=== PATIENT | female | born 1975 | race Caucasian/White ===

== ENCOUNTER → 2020-01-27 11:31 | Outpatient (BNVA) | payer OTHER, SELFPAY | PROVIDERS: Family Provider Family Medicine; PCP Family Medicine; Visit Provider Nurse Practitioner Family | DX: N20.9 Urinary calculus, unspecified (principal); N39.0 Urinary tract infection, site not specified; N20.0 Calculus of kidney | CPT/HCPCS: 80053; 81001; 87077; 87086; 87186 ==

== ENCOUNTER 2020-02-02 13:21 | Outpatient (CLI) | payer OTHER, SELFPAY ==
--- NOTE | 2020-02-02 13:26 | XR_ITS ---
WS: [id number] ABDOMEN 1 VIEW(S) HISTORY: Stone COMPARISON: 07/27/2019 Normal bowel gas pattern. No suspicious calcifications or masses. No bone abnormality. XR/XR KUB [id number] IMPRESSION: Normal abdomen. No ureteral or renal calcifications identified.
== END 2020-02-02 13:22 | disposition home or self-care (01) ==
LOC: RAD 13:24
PROVIDERS: Family Provider Family Medicine; PCP Family Medicine; Visit Provider Urology
DX: N20.0 Calculus of kidney (principal); N39.0 Urinary tract infection, site not specified
CPT/HCPCS: 74018; 81001; 85025

== ENCOUNTER → 2020-02-04 08:46 | Outpatient (BNVA) | payer OTHER, SELFPAY | PROVIDERS: Family Provider Family Medicine; PCP Family Medicine; Visit Provider Urology | DX: N39.0 Urinary tract infection, site not specified (principal) | CPT/HCPCS: 81001 ==

== ENCOUNTER 2020-02-04 09:37 | Inpatient (IN) | payer OTHER, SELFPAY ==
[2020-02-04] VITALS (8 sets, daily range): BP systolic 94–116; BP diastolic 59–70; PULSE 58–84; RESP 16–18; TEMP 36.6–36.9; O2SAT 95–97; BMI 29.2
--- NOTE | 2020-02-04 09:44 | W.ED.ABDPA2 ---
HPI - Abdominal Pain General: Chief Complaint: Urogenital-Female Stated Complaint: KIDNEY PAIN Time Seen by Provider: 02/04/20 09:38 Source: patient Mode of arrival: ambulatory Limitations: no limitations History of Present Illness: HPI narrative: 44-year-old female who has a long history of kidney stones and cystitis. Patient sent here to be admitted by Dr. Sotelo for continuing cystitis. Patient does have flank pain she rates a 5 out of 10. Denies any vomiting. She has had low-grade fevers. Denies any worsening improving factors. MD elicited complaint: flank pain Pertinent past history: kidney stones Onset (ago): day(s) Pain Consistency: constant Location: L flank and R flank Severity: moderate Quality: sharp Exacerbating factors: nothing Relieving factors: nothing Associated Symptoms: Reports nausea; Denies chills and fever(s) Review of Systems Const: Denies: fever, chills, body aches or change in appetite Eyes: Denies: blurry vision or eye discomfort ENMT: Denies: throat pain or dental pain Card: Denies: chest pain Resp: Denies: shortness of breath GI: Reports: abdominal pain and nausea : Reports: flank pain Musc: Denies: neck pain or back pain Skin/Breast: Denies: rash Neuro: Denies: headache Psych: Denies: depression Kanu/Lymph: Denies: easy bruising All/Imm: Denies: hives PFSH ED PFSH: Medical History Recurrent UTI Renal calculus S/P extracorporeal shock wave therapy Surgical History H/O knee surgery H/O: hysterectomy S/P cholecystectomy S/P tonsillectomy Family History Father , 80 Cancer liver Diabetes Mother No problems noted. Social History Smoking and tobacco status: current every day smoker Alcohol intake: current Alcohol intake frequency: holidays/special occasions only Marital status: Current occupational status: employed History of recent travel: No Physical Exam Const: COMMON NORMALS: no apparent distress, oriented x3 and healthy appearing HENMT: COMMON NORMALS: normocephalic and head/scalp atraumatic HEAD & SCALP: normocephalic and atraumatic Eye: COMMON NORMALS: PERRL and EOMs intact bilaterally PUPIL: Yes PERRL Neck/C-Spine: COMMON NORMALS: full ROM and supple Chest: COMMONS NORMALS: inspection of chest normal and palpation of chest normal Resp: COMMON NORMALS: normal respiratory effort, no retractions, no use of accessory muscles and clear to auscultation bilaterally AUSCULTATION: clear to auscultation bilaterally Cardio: COMMON NORMALS: regular rate, regular rhythm and no murmurs RATE: regular rate RHYTHM: regular rhythm GI: COMMON NORMALS: normal to inspection, nondistended, normoactive bowel sounds, soft to palpation, non-tender and no masses PALPATION: Yes soft Extremity: COMMON NORMALS: normal to inspection and full ROM Neuro: COMMON NORMALS: oriented x3, moves all extremities and no focal motor deficits Psych: COMMON NORMALS: mental status grossly normal, thought process normal and cooperative THOUGHT PROCESS: normal thought process Skin: COMMON NORMALS: no rashes or lesions noted and no wounds GENERAL SKIN EXAM: no rashes or lesions noted Course Vital Signs: Vital signs: Vital Signs Temperature 98.0 F 02/04/20 09:41 Pulse Rate 84 02/04/20 09:41 Respiratory Rate 16 02/04/20 09:41 Blood Pressure 116/70 02/04/20 09:41 Pulse Oximetry 95 02/04/20 09:41 MDM - Abdominal Pain MDM Narrative: Medical decision making narrative: Patient presents here with flank pain and likely cystitis. I spoke to Dr. Sotleo who is going to admit her directly from the ER and has placed in orders. Patient's been stable while here. Discharge Plan Discharge Patient Disposition: Admitted As Inpatient Clinical Impression: Bilateral flank pain Condition: Stable Referrals: Lazaro So MD [Primary Care Provider] - Coding Level of Care Code ED Backend Java Developer for Chg Fwd Exam Comprehensive
[2020-02-04] MEDS: ondansetron 2 mg/ML SDV 2 mL 4 MG IVP (10:16)
[2020-02-04] MEDS: HYDROmorphone 1 mg/mL INJ 1 mL 0.5 MG IVP (10:16)
[2020-02-04 10:41] LABS: Basophils # 0.1 10^3/uL (0.0-0.1); Basophils % 0.5 %; Eosinophils # 0.1 10^3/uL (0.0-0.8); Eosinophils % 0.8 %; Hematocrit 48.1 % (37.0-47.0); Hemoglobin 15.7 g/dL (11.5-15.3); Lymphocytes # 2.5 10^3/uL (0.8-4.8); Lymphocytes % 22.9 %; Mean Corpuscular HGB Conc 32.6 g/dL (30.0-36.0); Mean Corpuscular Hemoglobin 30.1 pg (28.0-34.0); Mean Corpuscular Volume 92.1 fL (81-99); Monocytes # 0.9 10^3/uL (0.2-0.9); Monocytes % 7.9 %; Neutrophils # 7.2 10^3/uL (1.8-7.7); Neutrophils % 67.4 %; Nucleated Red Blood Cells % 0 %; Platelet Count 397 10^3/cmm (130-400); Red Blood Count 5.22 10^6/uL (4.1-5.3); Red Cell Distribution Width 12.9 % (12.1-15.1); White Blood Count 10.7 10^3/uL (4.0-10.0)
[2020-02-04 10:53] LABS: Alanine Aminotransferase 17 U/L (0-33); Albumin Level 4.3 g/dL (3.5-5.2); Alkaline Phosphatase 70 IU/L (35-105); Anion Gap 15.1 (5-19); Aspartate Amino Transferase 17 U/L (0-32); Blood Urea Nitrogen 12 mg/dL (6-20); Calcium 9.5 mg/dL (8.5-10.5); Carbon Dioxide 22 mmol/L (22-29); Chloride 105 mmol/L (98-107); Globulin 2.5 g/dL (1.3-4.6); Glomerular Filtration Rate 109.6 mL/min (90-130); Glucose 107 mg/dL (65-115); Osmolality Calculated 283 mOsm/kg (285-295); Potassium 4.1 mmol/L (3.5-5.1); Sodium 138 mmol/L (136-145); Total Bilirubin 0.2 mg/dL (0.15-1.2); Total Protein 6.8 g/dL (6.6-8.7)
--- NOTE | 2020-02-04 14:32 | CT_ITS ---
WS: [id number] CT ABDOMEN AND PELVIS NONCONTRAST HISTORY: left abdominal pain, history of stones TECHNIQUE: Imaging performed through the abdomen and pelvis. Coronal and sagittal reformats are submi tted. All CT scans at [facility] use at least one of these dose optimization techniques: automated exposure control; mA and/or kV adjustment per patient size (includes targeted exams where d ose is matched to clinical indication); or iterative reconstruction. DLP: 1286.01 mGy.cm COMPARISON: 09/14/2018 Lower thorax: Lung bases are clear. No hiatal hernia. Liver: Mild hepatomegaly and hepatic steatosis. No bile duct dilatation. Gallbladder: Prior cholecystectomy. Pancreas: Normal. Spleen: Normal. Adrenal glands: Normal. Right kidney: Normal size kidney. Vague calcifications are present in the medullary portion of the ki dney consistent with medullary sponge kidney. RIGHT ureter is not dilated. Left kidney: Normal size kidney with the increased density in the medullary portion of the kidney fro m medullary sponge kidney. The ureter is not dilated. Mild atherosclerosis aorta. No aneurysm. No free fluid, intraperitoneal air or significant lymphadenopathy. GI tract: Normal appendix. Mild fecal retention. A few scattered diverticula in the sigmoid region. N o acute inflammation. Abdominal wall: Intact. Pelvis: Minimally distended urinary bladder. No free fluid. Prior hysterectomy. Small LEFT ovarian fo llicle, 2.0 cm. Osseous structures: Unremarkable. CT/CT kidney stone [id number] IMPRESSION: 1. Medullary sponge kidneys similar to the prior study. No renal obstruction o r hydronephrosis. 2. Prior hysterectomy and cholecystectomy. 3. Normal appendix.
--- NOTE | 2020-02-04 14:54 | P.HP_ITS ---
Providers/Chief Complaint Admitting Physician: Malik Sotelo MD Primary Care Provider: Lazaro So MD Chief Complaint: FLANK PAIN, CYSTITIS History of Present Illness Stacy Aguero is a 44 year old female well-known to me for history of MSK type renal stone changes as well as recurrent urinary tract infections with pyelonephritis but no clear evidence of sepsis. On 01/27/2020 she was seen in the clinic for about 1 month history of increasing foul-smelling urine and lower urinary tract symptoms. Being on a self treatment program with Bactrim DS she started treatment and took it for about 3 weeks with improvement in symptoms and she stopped it. Shortly thereafter she started increasing symptoms again and restarted the Bactrim noticed no improvement. Other symptoms included chills but no fever and also developing left-sided pain. Was changed on that same day to Levaquin but failed to improve. She was reevaluated in the office on 02/02/2020. Culture from 01/27/2020 showed Klebsiella sensitive to cefuroxime, Cipro, Levaquin, nitrofurantoin, tetracycline and Bactrim but resistant to ampicillin. Urinalysis on that day was fairly unremarkable. KUB showed no obvious ureteral stones but did show known bilateral punctate calcifications. She felt that her symptoms were worsening. Based on the above culture she was started on Rocephin and changed from Levaquin to cefuroxime with plans for follow-up today. Today she presented with no significant improvement. She started having some nausea and some dizziness. Did complain also of some left lower quadrant pain which I think was noted. No overt fever but just generalized feeling poorly despite antibiotic course as described above. No significant change in her baseline bowel habits. She does have some mild diarrhea but nothing that she considers out of the normal for her. Because of the failure of outpatient treatment I recommended admission to the hospital on observation status. We will consult primary care or hospitalist service for broader perspective review of her condition. Because of her history of recurrent stones and left-sided flank pain and lower quadrant pain on that side I have recommended a CT scan stone protocol. Review of Systems 2 Const: Reports: chills, fatigue and malaise; Denies: fever Eyes: Denies: change in vision or blurry vision ENMT: Denies: throat pain or painful swallowing Card: Denies: chest pain or palpitations Resp: Denies: shortness of breath, productive cough or non-productive cough GI: Reports: abdominal pain, nausea, vomiting and other (Mild chronic diarrhea without significant change from baseline) : Reports: flank pain and urinary urgency Musc: Denies: neck pain, back pain or joint swelling Skin/Breast: Denies: rash or skin tenderness Neuro: Reports: dizziness; Denies: weakness in extremities, difficulty walking, confusion or seizure-like activity Psych: Reports: anxiety (Related to illness); Denies: memory loss Kanu/Lymph: Denies: easy bruising or easy bleeding All/Imm: Denies: hives or throat swelling Medications/Allergies Home Medications Medication Instructions Recorded Confirmed Last Taken Type cefuroxime axetil 500 mg tablet 500 mg PO BID #28 tab 02/02/20 02/04/20 02/04/20 05:00 Rx ketorolac 10 mg tablet 10 mg PO Q6H 5 Days #20 tab 02/02/20 02/04/20 02/03/20 23:59 Rx sulfamethoxazole-trimethoprim 1 tab PO BID PRN 02/04/20 02/04/20 Unknown History Allergies Allergy/AdvReac Type Severity Reaction Status Date / Time gluten Allergy ALGY-Rash Verified 02/04/20 09:47 morphine Allergy N/V Verified 02/04/20 08:44 PFSH Acute PFSH: Medical History (Updated 02/04/20 @ 17:55 by Otis Rodas MD) Medullary sponge kidney Recurrent UTI Renal calculus S/P extracorporeal shock wave therapy Surgical History (Updated 02/04/20 @ 17:51 by Otis Rodas MD) H/O knee surgery H/O: hysterectomy History of tubal ligation S/P cholecystectomy S/P tonsillectomy Family History Father , 80 Cancer liver Diabetes Mother No problems noted. Social History (Updated 02/04/20 @ 17:51 by Otis Rodas MD) Smoking and tobacco status: current every day smoker Alcohol intake: current Alcohol intake frequency: holidays/special occasions only Substance/Drug Use: current Substance/Drug use frequency: Special occassions/opportunity only Substance/Drug use type: Marijuana Marital status: Current occupational status: employed History of recent travel: No Vitals/I&O/Wt Last Vital Signs Temp 97.8 F 02/04/20 14:21 Pulse 80 02/04/20 14:21 Resp 18 02/04/20 14:21 BP 111/61 02/04/20 14:21 Pulse Ox 96 02/04/20 14:21 Weight last 48 hrs Weight 170 lb Physical Exam Const: COMMON NORMALS: no apparent distress, alert and well nourished GENERAL APPEARANCE: well kempt and well developed ORIENTATION/CONSCIOUSNESS: not confused HENMT: COMMON NORMALS: normocephalic and head/scalp atraumatic Eye: COMMON NORMALS: conjunctivae normal and no scleral icterus Neck/C-Spine: COMMON NORMALS: full ROM GENERAL: Yes normal visual inspect ion Lymph: LYMPHATIC: no lymphadenopathy noted and no lymphedema noted Resp: COMMON NORMALS: normal respiratory effort EFFORT & INSPECTION: No labored and No actively coughing AUSCULTATION: clear to auscultation bilaterally Cardio: COMMON NORMALS: regular rate, regular rhythm and no murmurs RATE: regular rate RHYTHM: regular rhythm Extremity: COMMON NORMALS: no clubbing, cyanosis or edema Neuro: COMMON NORMALS: no focal motor deficits SENSORIUM/ORIENTATION: Yes alert Psych: COMMON NORMALS: mental status grossly normal APPEARANCE: Yes grossly normal and Yes well kempt ATTITUDE: Yes calm and Yes engaged Skin: COMMON NORMALS: no rashes or lesions noted and no jaundice GENERAL SKIN EXAM: no rashes or lesions noted, turgor normal and no mottling Data : 02/04/20 17:33 02/04/20 17:33 A&P Assessment and plan (1) Recurrent UTI: Evidence of refractory UTI type symptoms despite targeted treatment with antibiotics based on cultures. Status: Acute (2) Renal calculus: Status: Acute (3) Left flank pain: Status: Acute Attestations Medical Necessity Statement*: She has been on outpatient oral and intramuscular antibiotic therapy but worsening clinically per her report. Admit for IV antibiotics as well as medicine consultation for other potential sources Based on left Plan I have recommended a CT scan as well. 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
[2020-02-04] MEDS: dextrose 5%-sod chloride 0.45% 1,000 ML 75 ML IV (15:19)
[2020-02-04] MEDS: cefTRIAXone 2,000 MG in sodium chloride 0.9% (plus) 50 ML 100 MG IV (15:19)
--- NOTE | 2020-02-04 17:47 | P.CONIM_ITS ---
Providers/Reason For Consult Consulting Physican/Specialty*: Hospitalist Reason for Consult*: Urinary tract infection Attending Physician: Malik Sotelo MD Primary Care Provider: Lazaro So MD History of Present Illness History of Present Illness Stacy Aguero is a 44 year old female with history of medullary sponge kidney disease, frequent urinary stones and infections who presents to the hospital who occasionally will require Bactrim at start of UTI and self treat presents with at least 2 weeks of symptoms. She believes she has had some lower urinary tract symptoms such as pain, dysuria. She started Bactrim, which failed to improve symptoms and eventually this was changed to Levaquin. Culture in late January demonstrated Klebsiella that was only resistant to ampicillin. She eventually was prescribed cefuroxime, and then Rocephin IM for at least 2 days prior to presentation here. She reports she has had some nausea and vomiting. No significant diarrhea. No hematemesis, hematochezia, melena. She reports she has had some back tenderness more on the right. She has had some abdominal tenderness, slightly below the bellybutton on both sides. She denies any fever. She has had some depression lately, since her father's . She would like to feel better. She has had quite a bit of fatigue. Review of Systems General: Reports: 10 or more systems reviewed and unremarkable except in HPI and below Const: Reports: malaise; Denies: fever Eyes: Denies: change in vision ENMT: Denies: throat pain Card: Denies: chest pain Resp: Denies: shortness of breath GI: Reports: abdominal pain, nausea and vomiting : Reports: flank pain Musc: Denies: neck pain Skin/Breast: Denies: rash Neuro: Denies: headache Psych: Reports: anxiety and depression Endo: Denies: excessive urination Kanu/Lymph: Denies: easy bruising All/Imm: Denies: hives Meds/Allergies Home Medications and Allergies Home Medications Medication Instructions Recorded Confirmed Last Taken Type cefuroxime axetil 500 mg tablet 500 mg PO BID #28 tab 02/02/20 02/04/20 02/04/20 05:00 Rx ketorolac 10 mg tablet 10 mg PO Q6H 5 Days #20 tab 02/02/20 02/04/20 02/03/20 23:59 Rx sulfamethoxazole-trimethoprim 1 tab PO BID PRN 02/04/20 02/04/20 Unknown History Allergies Allergy/AdvReac Type Severity Reaction Status Date / Time gluten Allergy ALGY-Rash Verified 02/04/20 09:47 morphine Allergy N/V Verified 02/04/20 08:44 Current Medications Current Medications Generic Name Dose Route Start Last Admin Trade Name Freq PRN Reason Stop Dose Admin Ceftriaxone Sodium 2,000 mg/ 50 mls @ 100 mls/hr 02/04/20 15:00 02/04/20 15:19 Sodium Chloride IV 100 mls/hr Q24H CARLOS Administration Protocol Dextrose/Sodium Chloride 1,000 mls @ 75 mls/hr 02/04/20 14:45 02/04/20 15:19 Dextrose 5%-Sod Chloride 0.45% IV 75 mls/hr .[id number] CARLOS Administration PFSH Acute PFSH: Medical History (Updated 02/04/20 @ 17:55 by Otis Rodas MD) Medullary sponge kidney Recurrent UTI Renal calculus S/P extracorporeal shock wave therapy Surgical History (Updated 02/04/20 @ 17:51 by Otis Rodas MD) H/O knee surgery H/O: hysterectomy History of tubal ligation S/P cholecystectomy S/P tonsillectomy Family History Father , 80 Cancer liver Diabetes Mother No problems noted. Social History (Updated 02/04/20 @ 17:51 by Otis Rodas MD) Smoking and tobacco status: current every day smoker Alcohol intake: current Alcohol intake frequency: holidays/special occasions only Substance/Drug Use: current Substance/Drug use frequency: Special occassions/opportunity only Substance/Drug use type: Marijuana Marital status: Current occupational status: employed History of recent travel: No Vitals/I&O/Wt Last Vital Signs Temp 97.8 F 02/04/20 15:51 Pulse 62 02/04/20 15:51 Resp 18 02/04/20 15:51 BP 97/60 02/04/20 15:51 Pulse Ox 96 02/04/20 15:51 Weight last 48 hrs Weight 77.111 kg Physical Exam Narrative: EXAM NARRATIVE: General exam is a white female, in no apparent distress. Conversant and pleasant HEENT: Pupils equally round react to light. Oropharynx clear. Neck is supple no lymphadenopathy or thyromegaly Cardiovascular regular rate and rhythm without murmur. No S3 or S4 Lungs clear no wheezing or crackles Abdomen slight tenderness, inferior to umbilicus on both sides. Slight CVA tenderness on the right. deferred Extremities no cyanosis clubbing or edema Skin no rash Neuro no focal deficits A&P Assessment and plan (1) Recurrent UTI: Urinalysis has been ordered. Last culture was from January 26. Agree with Rocephin 2 g IV every 24 hours which has been ordered. Agree with hydration Patient reports she has had rather difficult times in the past getting over UTIs and is even had greater than 10 days of IM Rocephin in the past. Monitor for any evidence of systemic infection such as fever. She does not appear septic. Status: Acute (2) Nausea: She does have some abdominal discomfort with this as well. This may be related to a UTI which is needs further treatment. However, given that she has vomiting as well will place on Protonix 40 mg daily. Zofran as needed for nausea. Hydration Check lipase CT scan of abdomen pelvis has been completed and reviewed. No evidence of renal stone. Status: Acute Additional A&P Information Generalized fatigue. This may also be secondary to her urinary tract infection symptoms. She also relates some underlying depression but does not want medication for this currently. We will check a TSH. History of medullary sponge kidney Low risk for DVT, no prophylaxis needed Thank you for this consultation. 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
[2020-02-04 18:25] LABS: Basophils % 0.3 %; Eosinophils # 0.2 10^3/uL (0.0-0.8); Eosinophils % 1.7 %; Hematocrit 48.2 % (37.0-47.0); Hemoglobin 15.5 g/dL (11.5-15.3); Lymphocytes # 3.4 10^3/uL (0.8-4.8); Lymphocytes % 35.8 %; Mean Corpuscular HGB Conc 32.2 g/dL (30.0-36.0); Mean Corpuscular Hemoglobin 29.8 pg (28.0-34.0); Mean Corpuscular Volume 92.7 fL (81-99); Monocytes # 0.9 10^3/uL (0.2-0.9); Monocytes % 9.3 %; Neutrophils # 5.1 10^3/uL (1.8-7.7); Neutrophils % 52.4 %; Nucleated Red Blood Cells % 0 %; Platelet Count 376 10^3/cmm (130-400); White Blood Count 9.6 10^3/uL (4.0-10.0)
[2020-02-04 18:36] LABS: Alanine Aminotransferase 20 U/L (0-33); Alkaline Phosphatase 67 IU/L (35-105); Anion Gap 14.7 (5-19); Aspartate Amino Transferase 23 U/L (0-32); Blood Urea Nitrogen 8 mg/dL (6-20); Calcium 8.9 mg/dL (8.5-10.5); Carbon Dioxide 23 mmol/L (22-29); Chloride 103 mmol/L (98-107); Globulin 2.3 g/dL (1.3-4.6); Glomerular Filtration Rate 135.3 mL/min (90-130); Glucose 104 mg/dL (65-115); Osmolality Calculated 280 mOsm/kg (285-295); Potassium 3.7 mmol/L (3.5-5.1); Sodium 137 mmol/L (136-145); Total Bilirubin 0.3 mg/dL (0.15-1.2); Total Protein 6.3 g/dL (6.6-8.7)
[2020-02-04] MEDS: acetaminophen 325 mg Tablet 650 MG PO (18:37)
[2020-02-04] MEDS: pantoprazole DR 40 mg Tablet PO (18:37)
[2020-02-04 20:03] LABS: Thyroid Stimulating Hormone 1.93 uIU/mL (0.27-4.20)
[2020-02-04] MEDS: TRAMadol 50 mg Tablet PO (22:14)
[2020-02-04 23:40] LABS: Bilirubin Urine Neg (NEGATIVE); Blood Urine Neg (Negative); Glucose Urine UA Norm (Normal); Ketones Urine Negative (Negative); Nitrate Urine Negative (Negative); Protein Urine Neg (Negative); Specific Gravity, Urine 1.015 (1.005-1.030); Sulfosalicylic Acid Urine Negative (Negative); Urine Appearance Cloudy (CLEAR); Urine Color Yellow (Yellow); Urobilinogen Urine Norm (Negative); pH Urine 9 (5-7)
[2020-02-04 23:41] LABS: Add Urine Microscopic? YES; Bacteria Urine 2+; Hyaline Casts Urine 0-4; Leukocyte Esterase Urine Negative (Negative); RBC Urine RARE /hpf (0-2); Squamous Epithelial Cell Urine 0-4 (0-5); WBC Urine RARE /hpf (0-5)
[2020-02-05] VITALS: BP 95/60; PULSE 71; RESP 18; TEMP 36.7; O2SAT 95
[2020-02-05 04:00] VITALS: BP 93/60; PULSE 66; RESP 18; TEMP 36.5; O2SAT 98
[2020-02-05] MEDS: dextrose 5%-sod chloride 0.45% 1,000 ML 75 ML IV ×2 (04:48→19:36)
[2020-02-05 07:18] VITALS: BP 94/60; PULSE 80; RESP 18; TEMP 36.9; O2SAT 96
[2020-02-05] MEDS: pantoprazole DR 40 mg Tablet PO (08:53)
--- NOTE | 2020-02-05 09:13 | PM.PN ---
Subjective Subjective: Interval history: Hospital day #2, refractory chronic pyelonephritis. Does feel better today. No fever or chills. Decreased left flank pain but is experiencing some right flank pain. Again no evidence of ureteral obstruction on CT scan yesterday. Also still having some bladder discomfort. Trend is improving but she had failed multiple modalities on outpatient basis. I feel that she is more likely to be effectively treated on an inpatient basis at least over another 24-hour period and then consider making arrangements for outpatient IV antibiotics. Vitals/I&O/Wt Last Vital Signs Temp 98.4 F 02/05/20 07:18 Pulse 80 02/05/20 07:18 Resp 18 02/05/20 07:18 BP 94/60 02/05/20 07:18 Pulse Ox 96 02/05/20 07:18 02/04/20 02/05/20 02/05/20 22:59 06:59 14:59 Intake Total 1000 / 1000 Output Total 0 / 0 650 / 650 Balance 0 / 0 350 / 350 Weight last 48 hrs Weight 170 lb Physical Exam Const: COMMON NORMALS: no apparent distress, alert and well nourished GENERAL APPEARANCE: well kempt and well developed ORIENTATION/CONSCIOUSNESS: not confused Eye: COMMON NORMALS: conjunctivae normal and no scleral icterus CONJUNCTIVA: Yes conjunctivae normal Neck/C-Spine: COMMON NORMALS: full ROM GENERAL: Yes normal visual inspection Resp: COMMON NORMALS: normal respiratory effort EFFORT & INSPECTION: No labored and No actively coughing Neuro: COMMON NORMALS: no focal motor deficits SENSORIUM/ORIENTATION: Yes alert Psych: COMMON NORMALS: mental status grossly normal APPEARANCE: Yes grossly normal and Yes well kempt ATTITUDE: Yes calm and Yes engaged Data : 02/04/20 17:33 02/04/20 17:33 A&P Assessment and plan (1) Recurrent UTI: Suspicious for chronic pyelonephritis with intermittent lower urinary tract infection as well. Some improvement today on IV Rocephin. Recommend continue IV antibiotics. Consider conversion to outpatient IV antibiotics tomorrow. Continue IV fluids. Status: Acute (2) Renal calculus: Chronic medullary sponge kidney type pattern of small medullary stones. No evidence of obstructing ureteral stone Status: Acute (3) Left flank pain: Improved. Is experiencing some right-sided pain Status: Acute Attestations Medical Necessity Statement*: Failed outpatient oral and intramuscular antibiotics. Starting to show improvement. If she continues to improve I think 24 more hours will likely be adequate in preparation for discharge. Coding Level of Care Code Acute Music Industry Internship for [employer] Diagnoses Recurrent UTI N39.0 Renal calculus N20.0 Left flank pain R10.9
--- NOTE | 2020-02-05 09:18 | PM.MISC ---
Miscellaneous Note Note: Patient will be converted to inpatient status due to expectation of care to extend at least 2 midnights.
[2020-02-05 09:54] LABS: Lipase 50 U/L (13-60)
--- NOTE | 2020-02-05 10:45 | PM.PN ---
Subjective Subjective: Interval history: Stacy reports she feels somewhat better. Still some lower abdominal pain but flank pain is less. Medications: Reviewed: Yes Vitals/I&O/Wt Last Vital Signs Temp 98.4 F 02/05/20 07:18 Pulse 80 02/05/20 07:18 Resp 18 02/05/20 07:18 BP 94/60 02/05/20 07:18 Pulse Ox 96 02/05/20 07:18 02/04/20 02/05/20 02/05/20 22:59 06:59 14:59 Intake Total 1000 / 1000 Output Total 0 / 0 650 / 650 Balance 0 / 0 350 / 350 Weight last 48 hrs Weight 77.111 kg Physical Exam Narrative: EXAM NARRATIVE: General exam no apparent distress Cardiovascular regular rate and rhythm without murmur Lungs clear Abdomen is soft, positive bowel sounds Extremities no cyanosis clubbing or edema Data : 02/04/20 17:33 02/04/20 17:33 A&P Assessment and plan (1) Recurrent UTI: Urine culture has been ordered. Urinalysis is improved. Agree with Rocephin 2 g IV every 24 hours No evidence of sepsis Status: Acute (2) Nausea: She does have some abdominal discomfort with this as well. This may be related to a UTI However, given that she has vomiting as well will place on Protonix 40 mg daily. Zofran as needed for nausea. This will be continued Hydration Lipase was checked and normal CT scan of abdomen pelvis has been completed and reviewed. No evidence of renal stone. Status: Acute Additional A&P Information Generalized fatigue. This may also be secondary to her urinary tract infection symptoms. She also relates some underlying depression but does not want medication for this currently. TSH was checked and normal History of medullary sponge kidney Low risk for DVT, no prophylaxis needed Attestations Medical Necessity Statement*: Per primary Coding Level of Care Code Acute Supervisor Product Inspection for [employer] Diagnoses Recurrent UTI N39.0 Nausea R11.0
[2020-02-05 11:42] VITALS: BP 108/73; PULSE 68; RESP 17; TEMP 36.7; O2SAT 96
--- NOTE | 2020-02-05 12:58 | PC.CHAP ---
Pastoral Care Encounter/Spiritual Assessment Type of Contact [] Declined irrigation service technician visit [] Patient/Family/Request visit [] Outpatient visit [] Follow-up visit [] Physician referral [] Code/Alert [X] Routine visit [] Staff referral [] Actively dying [] Patient sleeping [] Family support [] [] Out of room [] Palliative care [] [] Receiving care in room [] Pre-surgical visit [] Trauma [] Long length of stay [] ICU visit [] Other: Relational/Emotional Strength [] Patient feels connected with others/family/visitors/staff [] Distress [] Loneliness/isolation [] Abandonment Spirituality of Patient [] Person of Malia [] Attends Gnosticism of their Malia [] Believes in Prayer [] Reads Bible or Advent materials [] There are Spiritual issues to be addressed Motors And Generators Inspector Interventions [] Prayer [] Active listening [] Non-anxious presence [] Spiritual/emotional support [] Crisis/trauma care [] Spiritual counseling [] Bereavement support [] Provided bereavement packet [] Provided Bible/devotional materials [] Provided toy/stuffed animal, coloring book to patient or family member [] Provided Communion [] Anointing/Shannon [] Salvation [] Completed spiritual assessment [] Other: Impact on Illness or Injury [] Angry [] Fearful [] Anxious [] Often cries [] Exhaustion [] Unable to work [] Unable to attend judaism [] Unable to walk/stand [] Unable to read [] Unable to drive [] Unable to eat/drink [] Unable to sleep [] Unable to be with family [] Patient intubated [] Other: Summary [employer] Time spent with patient
[2020-02-05] MEDS: cefTRIAXone 2,000 MG in sodium chloride 0.9% (plus) 50 ML 100 MG IV (14:39)
[2020-02-05 15:41] VITALS: BP 98/65; PULSE 71; RESP 17; TEMP 36.6; O2SAT 95
[2020-02-05 20:00] VITALS: BP 97/63; PULSE 67; RESP 18; TEMP 36.8; O2SAT 96
[2020-02-06] VITALS: BP 92/62; PULSE 69; RESP 16; TEMP 36.9; O2SAT 95
[2020-02-06 04:00] VITALS: BP 99/64; PULSE 62; RESP 16; TEMP 36.7; O2SAT 97
[2020-02-06 07:10] VITALS: BP 110/73; PULSE 82; RESP 18; TEMP 36.7; O2SAT 95
--- NOTE | 2020-02-06 07:50 | PM.DCS ---
Discharge Providers Date of Admission: 02/05/20 09:15 Date of Discharge: February 06, 2020 Attending Provider at Admission: Malik Sotelo MD Attending Provider at Discharge: Malik Sotelo MD Primary Care Provider: Lazaro So MD Diagnoses at Discharge Discharge Diagnosis (1) Recurrent UTI: Status: Acute (2) Nausea: Status: Acute Reason for Visit Reason for Visit: Reason For Visit: FLANK PAIN, CYSTITIS Hospital Course Hospital Course: She was placed in the hospital admission with IV fluids and change from Rocephin IM to IV 2 g 24 hours. She started to notice improvement relatively quickly. Her nausea was treated aggressively and with replacement of IV fluids she noticed a dramatic improvement in that. Was maintained in the hospital for 2 days because of the slow improvement but on 02/06/2020 she was deemed a good candidate for further outpatient treatment and convalescence at home. Did complain of a yeast infection and was started on prescription for Diflucan. We will plan on continuing the Rocephin 2 g IV daily on outpatient basis. Those arrangements will be made through my office tomorrow. Physical Exam Narrative: EXAM NARRATIVE: Appears much improved today. Const: COMMON NORMALS: no apparent distress, alert and well nourished GENERAL APPEARANCE: well kempt and well developed ORIENTATION/CONSCIOUSNESS: not confused HENMT: COMMON NORMALS: normocephalic and head/scalp atraumatic HEAD & SCALP: normocephalic and atraumatic Resp: COMMON NORMALS: normal respiratory effort EFFORT & INSPECTION: No labored and No actively coughing Neuro: SENSORIUM/ORIENTATION: Yes alert Psych: COMMON NORMALS: mental status grossly normal APPEARANCE: Yes grossly normal and Yes well kempt ATTITUDE: Yes calm and Yes engaged Discharge Data Data Completed and Pending: Completed Studies During Hospitalization Category Date Time Status CT kidney stone 7 4176 Routine Cat Scan 02/04/20 14:32 Completed Pending at discharge Category Date Time Status Urine Culture Rou re[facility] 02/05/20 11:50 Received Labs from last 24 hours 02/04/20 17:33 Lipase 50 Vitals: Last Vital Signs Temp 98.1 F 02/06/20 07:10 Pulse 82 02/06/20 07:10 Resp 18 02/06/20 07:10 BP 110/73 02/06/20 07:10 Pulse Ox 95 02/06/20 07:10 Discharge Plan Discharge Patient Disposition: Home, Self-Care Condition: Stable Prescriptions: New Diflucan 150 mg tablet 150 mg PO DAILY Qty: 3 RF: 1 Continued ketorolac 10 mg tablet 10 mg PO Q6H 5 Days Qty: 20 RF: 0 Discontinued cefuroxime axetil 500 mg tablet 500 mg PO BID Qty: 28 RF: 2 sulfamethoxazole-trimethoprim 800-160 mg tablet 1 tab PO BID PRN (Reason: unknown) RF: 0 Discharge Orders: Discharge Order (Routine); Ordered 02/06/20 Ordered By: Malik Sotelo Referrals: Lazaro So MD [Primary Care Provider] - Discharge Diet: Usual diet Discharge Activity: Resume usual activity Activity Restrictions/Additional Instructions: Please call my office on Friday morning to arrange outpatient IV antibiotics. We will continue the Rocephin 2 g every 24 hours. Discharge Attestations Time Spent in Discharge Care*: less than 30 min Quality Metrics Clinical Quality Measures During this hospital stay, did patient experience: None Coding Level of Care Code Acute Agriculture Instructor for Trina Fry Diagnoses Recurrent UTI N39.0 Nausea R11.0
[2020-02-06] MEDS: pantoprazole DR 40 mg Tablet PO (08:36)
[2020-02-06] MEDS: dextrose 5%-sod chloride 0.45% 1,000 ML 75 ML IV (08:36)
[2020-02-06] MEDS: cefTRIAXone 2,000 MG in sodium chloride 0.9% (plus) 50 ML 100 MG IV (09:00)
[2020-02-06 09:35] VITALS: BP 110/73; PULSE 82; RESP 18; TEMP 36.7; O2SAT 95
--- NOTE | 2020-02-06 10:05 | P.PN_ITS ---
Subjective Subjective: Interval history: Stacy reports she is doing well. Minimal discomfort. Ready to go home. Medications: Reviewed: Yes Vitals/I&O/Wt Last Vital Signs Temp 98.1 F 02/06/20 09:35 Pulse 82 02/06/20 09:35 Resp 18 02/06/20 09:35 BP 110/73 02/06/20 09:35 Pulse Ox 95 02/06/20 09:35 02/05/20 02/06/20 02/06/20 22:59 06:59 14:59 Intake Total 1650 / 2130 400 / 2530 1215 / 1215 Output Total 0 / 0 240 / 240 Balance 1650 / 2130 400 / 2530 975 / 975 Physical Exam Narrative: EXAM NARRATIVE: General exam no apparent distress Cardiovascular regular rate and rhythm without murmur Lungs clear Abdomen is soft, positive bowel sounds Extremities no cyanosis clubbing or edema Data : 02/04/20 17:33 02/04/20 17:33 Micro: Microbiology 02/05/20 11:50 Urine Culture - Preliminary Urine,Voided A&P Assessment and plan (1) Recurrent UTI: Urine culture has been ordered. Urinalysis is improved. Agree with Rocephin 2 g IV every 24 hours No evidence of sepsis Symptomatically greatly improved Status: Acute (2) Nausea: She does have some abdominal discomfort with this as well. This may be related to a UTI However, given that she has vomiting as well will place on Protonix 40 mg daily. Zofran as needed for nausea. This will be continued Hydration Lipase was checked and normal CT scan of abdomen pelvis has been completed and reviewed. No evidence of renal stone. This is now resolved Status: Acute Additional A&P Information Generalized fatigue. This may also be secondary to her urinary tract infection symptoms. She also relates some underlying depression but does not want medication for this currently. TSH was checked and normal History of medullary sponge kidney Low risk for DVT, no prophylaxis needed Discharge today. Agree with outpatient Rocephin IV, as directed by urology. Attestations Medical Necessity Statement*: Primary Coding Level of Care Code Acute Health Insurance Specialist for [employer] Fwd Diagnoses Recurrent UTI N39.0 Nausea R11.0
== END 2020-02-06 10:00 | disposition home or self-care (01) | DRG 690 ==
LOC: ER 09:54 → MEDSURG 12:04
PROVIDERS: Admitting Provider Urology; Emergency Provider Emergency Medicine; Family Provider Family Medicine; PCP Family Medicine; Visit Provider Urology
DX: N39.0 Urinary tract infection, site not specified (principal); Q61.5 Medullary cystic kidney; Z87.442 Personal history of urinary calculi; N20.0 Calculus of kidney; Z87.440 Personal history of urinary (tract) infections; F17.210 Nicotine dependence, cigarettes, uncomplicated; R53.83 Other fatigue; F32.9 Major depressive disorder, single episode, unspecified; R11.0 Nausea; N11.9 Chronic tubulo-interstitial nephritis, unspecified
CPT/HCPCS: 12345; 36415; 74176; 80053; 81001; 83690; 84443; 85025; 87086; 96375; 99283; G0378; J0696; J1170; J2405; J7799

== ENCOUNTER 2020-02-12 08:15 | Outpatient (RCR) | payer OTHER, SELFPAY ==
[2020-02-07] MEDS: cefTRIAXone 2,000 MG in sodium chloride 0.9% (plus) 50 ML 100 MG IV (10:45)
[2020-02-07 11:03] VITALS: BP 104/78; PULSE 66; RESP 18; TEMP -13.2; TEMP 8.2; O2SAT 96
[2020-02-08 09:29] VITALS: BP 116/73; PULSE 93; RESP 20; TEMP 37.4; O2SAT 97
[2020-02-08] MEDS: cefTRIAXone 2,000 MG in sodium chloride 0.9% (plus) 50 ML 2100 MG IV (09:32)
[2020-02-09] MEDS: cefTRIAXone 2,000 MG in sodium chloride 0.9% (plus) 50 ML 100 MG IV (09:00)
[2020-02-09 09:11] VITALS: BP 115/76; PULSE 100; RESP 16; TEMP 36.1; O2SAT 95
[2020-02-10 09:25] VITALS: BP 131/73; PULSE 69; RESP 18; TEMP 37.3; O2SAT 97
[2020-02-10] MEDS: cefTRIAXone 2,000 MG in sodium chloride 0.9% (plus) 50 ML 100 MG IV (09:27)
[2020-02-11 08:52] VITALS: BP 121/71; PULSE 73; RESP 18; TEMP 37.1; O2SAT 98
[2020-02-11] MEDS: cefTRIAXone 2,000 MG in sodium chloride 0.9% (plus) 50 ML 100 MG IV (08:59)
[2020-02-12] MEDS: cefTRIAXone 2,000 MG in sodium chloride 0.9% (plus) 50 ML 250 MG IV (09:05)
[2020-02-12 09:40] VITALS: BP 129/78; PULSE 76; RESP 18; TEMP 36.1
[2020-02-13 09:00] VITALS: BP 117/72; PULSE 72; RESP 18; TEMP 36.5; O2SAT 98
[2020-02-13] MEDS: cefTRIAXone 1,000 MG in sodium chloride 0.9% (plus) 50 ML 100 MG IV ×2 (09:55→10:06)
== END 2020-03-05 23:59 | disposition home or self-care (01) ==
LOC: OPS 08:15
PROVIDERS: Family Provider Family Medicine; PCP Family Medicine; Visit Provider Urology
DX: Z20.89 Contact with and (suspected) exposure to other communicable diseases (principal)
CPT/HCPCS: 81001; 96365; 96366; J0696

== ENCOUNTER → 2020-02-14 10:41 | Outpatient (BNVA) | payer OTHER, SELFPAY | PROVIDERS: Family Provider Family Medicine; PCP Family Medicine; Visit Provider Urology | DX: N39.0 Urinary tract infection, site not specified (principal); Q61.5 Medullary cystic kidney; N20.0 Calculus of kidney; R33.9 Retention of urine, unspecified | CPT/HCPCS: 81001 ==

== ENCOUNTER → 2020-03-14 14:48 | Outpatient (BNVA) | payer OTHER, SELFPAY | PROVIDERS: Family Provider Family Medicine; PCP Family Medicine; Visit Provider Urology | DX: N39.0 Urinary tract infection, site not specified (principal); Q61.5 Medullary cystic kidney; F17.210 Nicotine dependence, cigarettes, uncomplicated | CPT/HCPCS: 81001 ==

== ENCOUNTER → 2020-03-21 11:00 | Outpatient (BNVA) | payer OTHER, SELFPAY | PROVIDERS: Family Provider Family Medicine; PCP Family Medicine; Visit Provider Nurse Practitioner | DX: R05 Cough (principal) | CPT/HCPCS: 87635 ==

== ENCOUNTER 2020-06-15 07:03 | Outpatient (CLI) | payer OTHER, SELFPAY ==
--- NOTE | 2020-06-15 07:00 | XR_ITS ---
WS: [id number] KUB, 06/15/2020 Clinical Data: KIDNEY STONE Comparison: KUB, 02/02/2020. Findings: No abnormal intraabdominal masses are seen. There is a faint calcification overlying the superior asp ect of the right kidney. There is no dilatated small bowel or evidence of obstruction. There are clips in the right upper quadrant from a cholecystectomy. XR/XR KUB [id number] Impression: Faint calcification overlying upper pole of the right kidney.
== END 2020-06-15 07:04 | disposition home or self-care (01) ==
LOC: RAD 07:06
PROVIDERS: Family Provider Family Medicine; PCP Family Medicine; Visit Provider Urology
DX: N20.0 Calculus of kidney (principal)
CPT/HCPCS: 74018; 80053; 81001

== ENCOUNTER 2020-09-11 07:30 | Outpatient (CLI) | payer OTHER, SELFPAY ==
--- NOTE | 2020-09-11 07:30 | XR_ITS ---
WS: [id number] ABDOMEN: SUPINE FILM HISTORY: RENAL CALCULUS COMPARISON: 06/15/2020 Normal bowel gas pattern. No bone abnormality. Right kidney: 2 mm calcification over the mid RIGHT kidney is unchanged. No ureteral calcifications. Left kidney: No renal or ureteral stone identified. XR/XR KUB 80145 IMPRESSION: 2 mm stable RIGHT renal calcification.
== END 2020-09-11 07:31 | disposition home or self-care (01) ==
PROVIDERS: PCP Family Medicine; Visit Provider Urology
DX: N20.0 Calculus of kidney (principal)
CPT/HCPCS: 74018; 81003

== ENCOUNTER 2021-01-24 18:33 | Inpatient (IN) | payer OTHER, SELFPAY ==
--- NOTE | 2021-01-24 14:00 | XR_ITS ---
WS: [id number] KUB, AP view, 01/24/2021 Clinical Data: KIDNEY STONE Comparison: KUB, 09/11/2020. Findings: No abnormal intraabdominal masses are seen. There is no dilatated small bowel or evidence of obstruct ion. There is a small calcification overlying the midportion of the right kidney. There is bowel gas overl kwaku both kidneys obscuring detail. There are phleboliths in the true pelvis. XR/XR KUB 72098 Impression: Probable small right renal calculus.
[2021-01-24 18:13] VITALS: BMI 30.7
[2021-01-24 18:33] VITALS: BP 112/70; PULSE 70; RESP 19; TEMP 37.2; O2SAT 96
--- NOTE | 2021-01-24 18:33 | XR_ITS ---
WS: [id number] Chest 2 views, 01/24/2021 Clinical Data: shortness of breath Comparison: PA and lateral chest, 03/31/2006. Findings: No nodules, masses or effusions are seen. The heart is normal. The pulmonary vascularity is not increased. No pneumonia or pneumothorax is seen. There are clips in the right upper quadrant fro m a cholecystectomy. XR/XR chest 2V* [id number] Impression: Negative chest.
[2021-01-24] MEDS: ketorolac 30 mg/mL INJ IVP (19:33)
[2021-01-24] MEDS: D5-NS 0.45% + KCL 20 mEq 20 MEQ/1,000 ML BAG 75 MEQ IV (19:33)
[2021-01-24 19:53] VITALS: BP 109/75; PULSE 60; RESP 18; TEMP 37.1; O2SAT 96
[2021-01-24 20:07] LABS: Basophils # 0.1 10^3/uL (0.0-0.1); Basophils % 0.7 %; Eosinophils # 0.2 10^3/uL (0.0-0.8); Eosinophils % 1.7 %; Hematocrit 46.4 % (37.0-47.0); Hemoglobin 15.1 g/dL (11.5-15.3); Lymphocytes # 3.6 10^3/uL (0.8-4.8); Lymphocytes % 39.8 %; Mean Corpuscular HGB Conc 32.5 g/dL (30.0-36.0); Mean Corpuscular Hemoglobin 29.8 pg (28.0-34.0); Mean Corpuscular Volume 91.7 fL (81-99); Monocytes # 0.7 10^3/uL (0.2-0.9); Monocytes % 7.9 %; Neutrophils # 4.43 10^3/uL (1.8-7.7); Neutrophils % 49.5 %; Nucleated Red Blood Cells % 0 %; Platelet Count 366 10^3/cmm (130-400); Red Blood Count 5.06 10^6/uL (4.1-5.3); Red Cell Distribution Width 13.3 % (12.1-15.1)
--- NOTE | 2021-01-24 20:12 | PM.HP ---
Providers/Chief Complaint Admitting Physician: Malik Sotelo MD Primary Care Provider: Lazaro So MD Chief Complaint: Calculus of kidney 63861/N20.0 History of Present Illness Stacy was direct admitted from the clinic. HPI below: 01/24/2021: UROLOGY follow-up visit Last visit was September 2020 in follow-up of recurrent UTIs and urolithiasis with MSK pattern. KUB showed punctate bilateral renal calcifications. She complained of intermittent bilateral flank pain (right greater than sign left). She felt she was doing well from an infection perspective. She took Bactrim DS for approximately 1 month and then return back to methenamine plus vitamin C. Was to continue the methenamine plus vitamin C for UTI suppression. Was to keep TRAMADOL on hand for severe flank pain. Called recently with complaint of infection. Summary of outside records: [facility] Was seen on 01/18/[address] So for complaint of UTI symptoms, fatigue, and vomiting. She noted she had started Bactrim. Antibiotic was changed to CEFUROXIME and she received of Rocephin IM. Showed no growth. Presented back today, was seen by THEO Dong with complaint of fatigue, chills, nausea, vomiting, burning with urination and flank pain. Current data Additional history: She has noted increasing weakness and fatigue over the last 4 to 6 weeks. Has had an extensive work-up by Dr. So including lab work and apparently cardiac work-up that has shown no obvious underlying metabolic problem. Has had a couple cultures have been negative on METHENAMINE. A trial of cefuroxime preceded by 2 g of Rocephin last week did not significantly change her symptoms. Denies fever and chills but has had symptoms that are typical for her prior experience for pyelonephritis requiring IV antibiotics. These include fatigue shortness of breath, weakness, abdominal pain, flank pain dysuria frequency and urgency. Historically her symptoms far exceeded her objective findings but she always improved with IV antibiotics specifically Rocephin. UA:2-4 white cells. KUB: Multiple small bilateral renal calculi. No evidence of ureteral calculi. Symptoms: Progressive fatigue, weakness, shortness of breath, bilateral flank pain, dysuria. No gross hematuria no obvious stone passage. Discussion: She has failed outpatient management of this problem. See description above. There does not appear to be an obvious ureteral calculus on KUB. If symptoms become more significant for renal colic I will request a CT scan. In the past she has had these atypical episodes consistent with pyelonephritis associated with medullary sponge kidney. On multiple occasions in the past attempts at oral antibiotics treatment courses were unsuccessful and required hospitalization, parenteral fluids, parenteral antibiotics. Recent cultures on antibiotics have been negative. She has responded well in the past 2 extended courses of ROCEPHIN. Plans: 1. Direct admit to [facility] for IV antibiotics with anticipation of converting to outpatient antibiotics. Hold METHENAMINE 2. Routine lab, chest x-ray. 3. Pending above studies may consult hospitalist service. Review of Systems Narrative: Const: Reports: chills; Denies: fever(s) Eyes: Denies: change in vision or blurry vision ENMT: Denies: throat pain or odynophagia Card: Denies: chest pain or palpitations Resp: Reports: dyspnea; Denies: productive cough GI: Reports: abdominal pain; Denies: constipation : Reports: flank pain, dysuria, urinary frequency, urinary urgency, dribbling, nocturia (2X NIGHTLY), oliguria and hematuria Musc: Reports: back pain; Denies: joint redness Skin/Breast: Denies: rash Neuro: Denies: headache(s), behavioral changes or seizure-like activity Psych: Reports: anxiety; Denies: loss of interest or memory loss Endo: Denies: flushing Kanu/Lymph: Denies: easy bruising, easy bleeding or enlarged lymph nodes All/Imm: Denies: urticaria or acute wheezing Medications/Allergies Home Medications Medication Instructions Recorded Confirmed Last Taken Type fluconazole [Diflucan] 150 mg PO DAILY #3 tab 02/06/20 01/24/21 Unknown Rx methenamine hippurate 1 gram tablet 1 gm PO BID #60 tab 03/14/20 01/24/21 Unknown Rx ascorbic acid (vitamin C) 1,000 mg 1,000 mg PO BID tab 06/15/20 01/24/21 Unknown History tablet tramadol 50 mg tablet 50 mg PO Q8H PRN #30 tab 09/06/20 01/24/21 Unknown Rx Allergies Allergy/AdvReac Type Severity Reaction Status Date / Time gluten Allergy ALGY-Rash Verified 01/24/21 14:49 morphine Allergy N/V Verified 01/24/21 14:49 PFSH Acute PFSH: Medical History Medullary sponge kidney Pyelonephritis Recurrent UTI Renal calculus S/P extracorporeal shock wave therapy Surgical History H/O knee surgery H/O: hysterectomy History of tubal ligation S/P cholecystectomy S/P tonsillectomy Family History Father , 80 Cancer liver Diabetes Mother No problems noted. Social History Smoking and tobacco status: current every day smoker Alcohol intake: current Alcohol intake frequency: holidays/special occasions only Marital status: Current occupational status: employed History of recent travel: No Vitals/I&O/Wt Last Vital Signs Temp 98.7 F 01/24/21 19:53 Pulse 60 01/24/21 19:53 Resp 18 01/24/21 19:53 BP 109/75 01/24/21 19:53 Pulse Ox 96 01/24/21 19:53 Weight last 48 hrs Weight 179 lb 4 oz Physical Exam Narrative: EXAM NARRATIVE: Const: COMMON NORMALS: no acute distress, alert and well nourished GENERAL APPEARANCE: well kempt and well developed ORIENTATION/CONSCIOUSNESS: not confused HENMT: COMMON NORMALS: normocephalic and atraumatic HEAD & SCALP: normocephalic and atraumatic Eye: COMMON NORMALS: conjunctivae normal and no scleral icterus CONJUNCTIVA: Yes conjunctivae normal Neck/C-Spine: COMMON NORMALS: full ROM GENERAL: Yes normal visual inspection Lymph: LYMPHATIC: no lymphadenopathy noted and no lymphedema noted Resp: COMMON NORMALS: normal respiratory effort and clear to auscultation bilaterally EFFORT & INSPECTION: Yes able to speak in complete sentences, No respiratory distress and No labored AUSCULTATION: clear to auscultation bilaterally Cardio: COMMON NORMALS: regular rate, regular rhythm and No murmurs present (Cardio) RATE: regular rate RHYTHM: regular rhythm BRUITS: no carotid bruits GI: COMMON NORMALS: Soft to palpation PALPATION: Yes Soft to palpation and Yes Tenderness to palpation present (GI) Details: RLQ, LUQ and RUQ : BLADDER/KIDNEY EXAM: Yes CVA tenderness Back/Pelvis: GENERAL BACK: Yes CVA tenderness CVA tenderness: bilateral (Left greater than sign right) Extremity: OTHER: Normal Gait Neuro: COMMON NORMALS: no focal motor deficits SENSORIUM/ORIENTATION: Yes alert Psych: COMMON NORMALS: mental status grossly normal APPEARANCE: Yes grossly normal and Yes well kempt ATTITUDE: Yes calm and Yes engaged Skin: COMMON NORMALS: no rashes or lesions noted and turgor normal GENERAL SKIN EXAM: no rashes or lesions noted, turgor normal and no mottling Data : 01/24/21 19:50 01/24/21 19:50 A&P Assessment and plan (1) Pyelonephritis: Start IV Rocephin. Status: Acute (2) Medullary sponge kidney: Status: Chronic (3) Recurrent UTI: Status: Chronic (4) Renal calculus: Status: Chronic Attestations Medical Necessity Statement*: Failed outpatient therapy for pyelonephritis picture in face of medullary sponge kidney with history of progressive symptoms previously only at best poorly responsive to oral antibiotics. Coding Level of Care Code Acute Head [employer] Assistant Teacher for g Fwd Diagnoses Pyelonephritis N12 Medullary sponge kidney Q61.5 Recurrent UTI N39.0 Renal calculus N20.0
[2021-01-24 20:22] LABS: Lactic Sepsis W/Reflex 0.7 mmol/L (0.5-2.2)
[2021-01-24 20:23] LABS: Alanine Aminotransferase 15 U/L (0-33); Albumin Level 4.4 g/dL (3.5-5.2); Alkaline Phosphatase 85 IU/L (35-105); Anion Gap 14.1 (5-19); Aspartate Amino Transferase 18 U/L (0-32); Blood Urea Nitrogen 9 mg/dL (6-20); Calcium 8.7 mg/dL (8.5-10.5); Carbon Dioxide 24 mmol/L (22-29); Chloride 106 mmol/L (98-107); Creatinine Clr Calc Pharmacy 149.6522; Globulin 2.4 g/dL (1.3-4.6); Glomerular Filtration Rate 134.7 mL/min (90-130); Glucose 103 mg/dL (65-115); Osmolality Calculated 289 mOsm/kg (285-295); Potassium 4.1 mmol/L (3.5-5.1); Sodium 140 mmol/L (136-145); Total Bilirubin 0.2 mg/dL (0.15-1.2); Total Protein 6.8 g/dL (6.6-8.7)
[2021-01-24] MEDS: cefTRIAXone 2,000 MG in sodium chloride 0.9% (plus) 50 ML 100 MG IV (21:22)
[2021-01-25] VITALS: BP 96/64; PULSE 76; RESP 18; TEMP 36.8; O2SAT 95
[2021-01-25 03:53] VITALS: BP 98/62; PULSE 71; RESP 18; TEMP 36.4; O2SAT 95
[2021-01-25] MEDS: TRAMadol 50 mg Tablet PO (04:02)
[2021-01-25 08:00] VITALS: BP 112/69; PULSE 78; RESP 18; TEMP 36.7; O2SAT 98
[2021-01-25] MEDS: D5-NS 0.45% + KCL 20 mEq 20 MEQ/1,000 ML BAG 75 MEQ IV ×2 (09:09→23:20)
--- NOTE | 2021-01-25 11:06 | PC.CHAP ---
Pastoral Care Encounter/Spiritual Assessment Type of Contact [] Declined aix administrator visit [] Patient/Family/Request visit [] Outpatient visit [] Follow-up visit [] Physician referral [] Code/Alert [x] Routine visit [] Staff referral [] Actively dying [] Patient sleeping [] Family support [] [] Out of room [] Palliative care [] [x] Receiving care in room [] Pre-surgical visit [] Trauma [] Long length of stay [] ICU visit [] Other: Relational/Emotional Strength [x] Patient feels connected with others/family/visitors/staff [] Distress [] Loneliness/isolation [] Abandonment Spirituality of Patient [x] Person of Malia [] Attends Orthodox of their Malia [x] Believes in Prayer [] Reads Bible or Mormon materials [] There are Spiritual issues to be addressed Production Posting Clerk Interventions [x] Prayer [x] Active listening [x] Non-anxious presence [x] Spiritual/emotional support [] Crisis/trauma care [x] Spiritual counseling [] Bereavement support [] Provided bereavement packet [] Provided Bible/devotional materials [] Provided toy/stuffed animal, coloring book to patient or family member [] Provided Communion [] Anointing/[place] [] Salvation [x] Completed spiritual assessment [] Other: Impact on Illness or Injury [] Angry [] Fearful [] Anxious [] Often cries [] Exhaustion [] Unable to work [] Unable to attend mormon [] Unable to walk/stand [] Unable to read [] Unable to drive [] Unable to eat/drink [] Unable to sleep [] Unable to be with family [] Patient intubated [] Other: Summary has kidney stone from time to time, she does get some relief from time to time, going home soon, has good attitude, Time spent with patient 10 mins
[2021-01-25 12:00] VITALS: BP 103/65; PULSE 71; RESP 17; TEMP 36.9; O2SAT 95
[2021-01-25] MEDS: fluconazole 100 mg Tablet 150 MG PO (12:26)
[2021-01-25] MEDS: ondansetron 4 MG Tablet PO (12:26)
[2021-01-25 16:00] VITALS: BP 109/69; PULSE 64; RESP 18; TEMP 36.5; O2SAT 96
[2021-01-25 19:46] VITALS: BP 115/74; PULSE 75; RESP 16; TEMP 36.9; O2SAT 95
--- NOTE | 2021-01-25 19:53 | P.PN_ITS ---
Subjective Subjective: Interval history: Hospital day #2. Feeling much better this evening. Less shortness of breath, more clear thinking, less nausea. Walked around and can tell a big difference since admission. Tolerated the Rocephin 2 g without any difficulty. We will continue same dose moving forward. If she continues to improve at this pace will consider discharge tomorrow after her next dose tomorrow Vitals/I&O/Wt Last Vital Signs Temp 98.4 F 01/25/21 19:46 Pulse 75 01/25/21 19:46 Resp 16 01/25/21 19:46 BP 115/74 01/25/21 19:46 Pulse Ox 95 01/25/21 19:46 01/25/21 01/25/21 01/25/21 06:59 14:59 22:59 Intake Total 1120 / 1120 Output Total 100 / 600 Balance -100 / -550 1120 / 1120 Weight last 48 hrs Weight 179 lb 4 oz Physical Exam Const: COMMON NORMALS: no acute distress, alert and well nourished GENERAL APPEARANCE: well kempt and well developed ORIENTATION/CONSCIOUSNESS: not confused Neck/C-Spine: COMMON NORMALS: full ROM Resp: COMMON NORMALS: normal respiratory effort EFFORT & INSPECTION: No labored and No Actively coughing Neuro: SENSORIUM/ORIENTATION: Yes alert Psych: COMMON NORMALS: mental status grossly normal APPEARANCE: Yes grossly normal and Yes well kempt ATTITUDE: Yes calm and Yes engaged Skin: COMMON NORMALS: no rashes or lesions noted and no jaundice GENERAL SKIN EXAM: no rashes or lesions noted Data : 01/24/21 19:50 01/24/21 19:50 A&P Assessment and plan (1) Pyelonephritis: Improving clinically Status: Acute (2) Renal calculus: Status: Chronic (3) Medullary sponge kidney: Status: Chronic Attestations Medical Necessity Statement*: Showing improvement. Hopefully this will continue at current dosing and consider potentially discharge after tomorrow evening's dose. Coding Level of Care Code Acute Electronic Pagination System Operator for [facility] Diagnoses Pyelonephritis N12 Renal calculus N20.0 Medullary sponge kidney Q61.5
[2021-01-25] MEDS: cefTRIAXone 2,000 MG in sodium chloride 0.9% (plus) 50 ML 100 MG IV (20:20)
[2021-01-26] VITALS: BP 107/67; PULSE 68; RESP 16; TEMP 36.8; O2SAT 97
[2021-01-26] MEDS: ondansetron 4 MG Tablet PO (01:01)
[2021-01-26 01:10] LABS: Glucose Point of Care 96 mg/dL (70-110)
[2021-01-26] MEDS: ondansetron 2 mg/ML SDV 2 mL 4 MG IVP (01:44)
--- NOTE | 2021-01-26 03:13 | PC.NURSE ---
Pt nauseated and vomited x2 early this a.m. Gave oral zofran, but immediately vomited after consuming. Called Dr. Sotelo. IV zofran ordered with okay to give IV dose immediately. Pt resting comfortably now. Will continue to monitor.
[2021-01-26 04:00] VITALS: BP 104/60; PULSE 66; RESP 16; TEMP 36.8; O2SAT 97
[2021-01-26 07:59] VITALS: BP 101/67; PULSE 83; RESP 18; TEMP 36.8; O2SAT 96
[2021-01-26 12:00] VITALS: BP 98/64; PULSE 59; RESP 17; TEMP 37.1; O2SAT 96
[2021-01-26] MEDS: D5-NS 0.45% + KCL 20 mEq 20 MEQ/1,000 ML BAG 75 MEQ IV (12:53)
[2021-01-26] MEDS: cefTRIAXone 2,000 MG in sodium chloride 0.9% (plus) 50 ML 100 MG IV (14:06)
--- NOTE | 2021-01-26 15:26 | PM.PN ---
Subjective Subjective: Interval history: Last night she was feeling much better. Sometime in the evening she developed increasing nausea, some vertigo type symptoms that have since passed. Did require some parenteral Zofran. Currently she is not feeling as good today she did yesterday. No spiking fevers. Does have some nausea and abdominal pain but no progressive dysuria. Recommended continuing IV antibiotics reassessing in the morning and if she is doing well consider discharge after tomorrow's dose. Encouraged her to have at least 24 hours without recurrent symptoms before discharge. If she does have recurrent episodes of vertigo type symptoms will request evaluation by hospitalist. Vitals/I&O/Wt Last Vital Signs Temp 98.8 F 01/26/21 12:00 Pulse 59 L 01/26/21 12:00 Resp 17 01/26/21 12:00 BP 98/64 01/26/21 12:00 Pulse Ox 96 01/26/21 12:00 01/26/21 01/26/21 01/26/21 06:59 14:59 22:59 Intake Total 1360 / 1360 50 / 1410 Output Total 900 / 2500 Balance -900 / -330 1360 / 1360 50 / 1410 Weight last 48 hrs Weight 179 lb 4 oz Physical Exam Const: COMMON NORMALS: no acute distress, alert and well nourished GENERAL APPEARANCE: well kempt and well developed ORIENTATION/CONSCIOUSNESS: not confused Neck/C-Spine: COMMON NORMALS: full ROM GENERAL: Yes normal visual inspection Resp: COMMON NORMALS: normal respiratory effort EFFORT & INSPECTION: No labored and No Actively coughing Neuro: SENSORIUM/ORIENTATION: Yes alert Psych: COMMON NORMALS: mental status grossly normal APPEARANCE: Yes grossly normal and Yes well kempt ATTITUDE: Yes calm and Yes engaged Skin: COMMON NORMALS: no rashes or lesions noted and no jaundice GENERAL SKIN EXAM: no rashes or lesions noted Data : 01/24/21 19:50 01/24/21 19:50 A&P Assessment and plan (1) Pyelonephritis: Improving clinically but still with some episodic symptoms beyond baseline. Status: Acute (2) Renal calculus: No current renal colicky symptoms. Status: Chronic (3) Medullary sponge kidney: Status: Chronic Attestations Medical Necessity Statement*: We will continue inpatient based on her increased symptoms last night. No evidence of progression of those though. Reassess in morning for possible discharge. Coding Level of Care Code Acute Business Management Specialist for Chg Fwd Diagnoses Pyelonephritis N12 Renal calculus N20.0 Medullary sponge kidney Q61.5
[2021-01-26 16:00] VITALS: BP 108/70; PULSE 71; RESP 17; TEMP 36.8; O2SAT 96
--- NOTE | 2021-01-26 18:19 | PC.RESP ---
Smoking Cessation information sent to patient.
[2021-01-26 19:49] VITALS: BP 107/69; PULSE 69; RESP 18; TEMP 37; O2SAT 95
[2021-01-27] VITALS: BP 89/60; PULSE 64; RESP 17; TEMP 36.1; O2SAT 94
[2021-01-27] MEDS: D5-NS 0.45% + KCL 20 mEq 20 MEQ/1,000 ML BAG 75 MEQ IV (03:37)
[2021-01-27 04:00] VITALS: BP 92/60; PULSE 55; RESP 17; TEMP 37; O2SAT 96
[2021-01-27 08:00] VITALS: BP 104/70; PULSE 72; RESP 17; TEMP 36.9; O2SAT 93
[2021-01-27 11:34] VITALS: BP 103/66; PULSE 61; RESP 16; TEMP 36.9; O2SAT 95
--- NOTE | 2021-01-27 12:19 | PM.DCS ---
Discharge Providers Date of Admission: 01/24/21 18:33 Date of Discharge: January 27, 2021 Attending Provider at Admission: Malik Sotelo MD Attending Provider at Discharge: aMlik Sotelo MD Primary Care Provider: Lazaro So MD Diagnoses at Discharge Discharge Diagnosis (1) Pyelonephritis: Status: Acute (2) Renal calculus: Status: Chronic (3) Medullary sponge kidney: Status: Chronic Reason for Visit Reason for Visit: Calculus of kidney 54604/N20.0 Hospital Course Hospital Course She presented with a history of progressive symptoms of UTI. She has a history of medullary sponge kidney with recurrent infections often progressing to pyelonephritis. Typical symptoms during those previous episodes included weakness, shortness of breath, fatigue and rarely fever. Has had progressive symptoms in the past without evidence of sepsis or elevated white count. Traditionally has responded well to IV Rocephin. This admission was preceded by several rounds of antibiotics orally which were ineffective in turning her clinical picture around. Admitted on 01/24/2021. Care during hospitalization primarily included fluid support, antiemetics, and Rocephin 2 g daily IV. She showed fairly prompt and continued improvement clinically. Her lab work looked fine. White count was high normal. No evidence of progression to sepsis. Liver functions and electrolytes were normal. She did have several episodes of emesis and one episode of some vertigo type symptoms that spontaneously resolved without additional treatment. On the day of discharge 01/27/2021 she was feeling almost baseline. She had gone 24 hours without any nausea or vomiting. Had no recurrence of the vertigo type symptoms. Was discharged in stable condition. Plans were to continue the Rocephin for total of 10 days which would include 6 days of outpatient IV infusion. Arrangements were made for that be conducted outpatient surgery. Will be followed up in about a week in my office or sooner for increasing symptoms. Physical Exam Const: COMMON NORMALS: no acute distress, alert and well nourished GENERAL APPEARANCE: well kempt and well developed ORIENTATION/CONSCIOUSNESS: not confused HENMT: COMMON NORMALS: normocephalic and atraumatic HEAD & SCALP: normocephalic and atraumatic Eye: COMMON NORMALS: conjunctivae normal and no scleral icterus CONJUNCTIVA: Yes conjunctivae normal Neck/C-Spine: COMMON NORMALS: full ROM GENERAL: Yes normal visual inspection Resp: COMMON NORMALS: normal respiratory effort EFFORT & INSPECTION: No labored and No Actively coughing Neuro: SENSORIUM/ORIENTATION: Yes alert Psych: COMMON NORMALS: mental status grossly normal APPEARANCE: Yes grossly normal and Yes well kempt ATTITUDE: Yes calm and Yes engaged Skin: COMMON NORMALS: no rashes or lesions noted and no jaundice GENERAL SKIN EXAM: no rashes or lesions noted Discharge Data Data Completed and Pending: Completed Studies During Hospitalization Category Date Time Status XR KUB [id number] Rout ine Exams 01/24/21 14:00 Completed XR chest 2V* 7104 6 Routine Exams 01/24/21 18:33 Completed Vitals: Last Vital Signs Temp 98.4 F 01/27/21 11:34 Pulse 61 01/27/21 11:34 Resp 16 01/27/21 11:34 BP 103/66 01/27/21 11:34 Pulse Ox 95 01/27/21 11:34 Discharge Plan Discharge Patient Disposition: Home Condition: Stable Prescriptions: Continued tramadol 50 mg tablet 50 mg PO Q8H PRN (Reason: pain) Qty: 30 RF: 1 tioconazole 6.5 % Ointment 1 ea VAGINAL DAILY RF: 0 Held ascorbic acid (vitamin C) 1,000 mg tablet 1,000 mg PO BID RF: 0 Hold Instructions: Resume on 02/03/21. methenamine hippurate 1 gram tablet 1 gm PO BID RF: 0 Hold Instructions: Resume on 02/03/21. Discontinued sulfamethoxazole-trimethoprim 800-160 mg tablet 1 tab PO BID PRN (Reason: UTI) RF: 0 cefuroxime axetil [Ceftin] 500 mg Tablet 500 mg PO BID RF: 0 Discharge Orders: Discharge Order (Routine); Ordered 01/27/21 Ordered By: Malik Sotelo Referrals: Malik Sotelo MD [Physician] - 1 week (followup iv antibiotics) Discharge Diet: Advance as tolerated Discharge Activity: Increase activity as tolerated Patient Instructions: Opioid Safety Discharge Attestations Time Spent in Discharge Care*: greater than 30 min Quality Metrics Clinical Quality Measures During this hospital stay, did patient experience: None Coding Level of Care Code Acute Chg FW DC note Diagnoses Pyelonephritis N12 Renal calculus N20.0 Medullary sponge kidney Q61.5
[2021-01-27] MEDS: cefTRIAXone 2,000 MG in sodium chloride 0.9% (plus) 50 ML 100 MG IV (13:09)
[2021-01-27 15:19] VITALS: BP 103/66; PULSE 61; RESP 16; TEMP 36.9; O2SAT 95
== END 2021-01-27 15:23 | disposition home or self-care (01) | DRG 690 ==
PROVIDERS: Admitting Provider Urology; PCP Family Medicine; Visit Provider Urology
DX: N10 Acute pyelonephritis (principal); Q61.5 Medullary cystic kidney; N20.0 Calculus of kidney; R42 Dizziness and giddiness; R11.2 Nausea with vomiting, unspecified; F17.200 Nicotine dependence, unspecified, uncomplicated; Z87.440 Personal history of urinary (tract) infections; Z87.442 Personal history of urinary calculi; Z90.710 Acquired absence of both cervix and uterus; Z90.49 Acquired absence of other specified parts of digestive tract
CPT/HCPCS: 36415; 36416; 71046; 74018; 80053; 81003; 82962; 83605; 85025; J0696; J1885; J2405; Q0162

== ENCOUNTER 2021-01-29 11:07 | Outpatient (RCR) | payer OTHER, SELFPAY ==
[2021-01-28 11:15] VITALS: BP 131/87; PULSE 95; RESP 18; TEMP 36.8; O2SAT 98
[2021-01-28] MEDS: cefTRIAXone 2,000 MG in sodium chloride 0.9% (plus) 50 ML 100 MG IV (11:40)
[2021-01-29 11:30] VITALS: BP 124/86; PULSE 89; RESP 18; TEMP 36.9; O2SAT 96
[2021-01-29] MEDS: cefTRIAXone 2,000 MG in sodium chloride 0.9% (plus) 50 ML 100 MG IV (11:44)
[2021-01-29 11:55] VITALS: BP 124/86; PULSE 89; RESP 18; TEMP 36.9; O2SAT 96
== END 2021-02-02 23:59 | disposition home or self-care (01) ==
LOC: OPS 11:07
PROVIDERS: PCP Family Medicine; Visit Provider Family Medicine
DX: N12 Tubulo-interstitial nephritis, not specified as acute or chronic (principal)
CPT/HCPCS: 96365; J0696

== ENCOUNTER 2021-02-02 08:30 | Outpatient (RCR) | payer OTHER, SELFPAY ==
[2021-01-30 08:45] VITALS: BP 133/78; PULSE 110; RESP 18; TEMP 36.9; O2SAT 96
[2021-01-30] MEDS: cefTRIAXone 2,000 MG in sodium chloride 0.9% (plus) 50 ML 100 MG IV (08:45)
[2021-01-31] MEDS: cefTRIAXone 2,000 MG in sodium chloride 0.9% (plus) 50 ML 100 MG IV (08:40)
[2021-02-01] MEDS: cefTRIAXone 2,000 MG in sodium chloride 0.9% (plus) 50 ML 100 MG IV (08:25)
[2021-02-01 08:29] VITALS: BP 122/83; PULSE 105; RESP 18; TEMP 36.7; O2SAT 97
[2021-02-02 08:43] VITALS: BP 123/75; PULSE 91; RESP 18; TEMP 36.8; O2SAT 98
[2021-02-02] MEDS: cefTRIAXone 2,000 MG in sodium chloride 0.9% (plus) 50 ML 100 MG IV (08:53)
== END 2021-02-02 23:59 | disposition home or self-care (01) ==
LOC: GILAB 08:30
PROVIDERS: PCP Family Medicine; Visit Provider Urology
DX: N12 Tubulo-interstitial nephritis, not specified as acute or chronic (principal)
CPT/HCPCS: 81003; 87086; 96365; J0696

== ENCOUNTER 2021-02-03 06:00 | Outpatient (RCR) | payer OTHER, SELFPAY | END 2021-02-03 23:59 | disposition home or self-care (01) | LOC: GILAB 06:00 | PROVIDERS: PCP Family Medicine; Visit Provider Urology | DX: N12 Tubulo-interstitial nephritis, not specified as acute or chronic (principal) ==

== ENCOUNTER 2021-02-03 11:00 | Outpatient (RCR) | payer OTHER, SELFPAY ==
[2021-02-03] MEDS: cefTRIAXone 2,000 MG in sodium chloride 0.9% (plus) 50 ML 100 MG IV (11:15)
[2021-02-03 11:19] VITALS: BP 117/86; PULSE 89; RESP 18; TEMP 36.3; O2SAT 97
[2021-02-04] MEDS: cefTRIAXone 2,000 MG in sodium chloride 0.9% (plus) 50 ML 100 MG IV (11:02)
[2021-02-04 11:16] VITALS: BP 102/56; PULSE 61; RESP 18; TEMP 36.8; O2SAT 96
== END 2021-02-05 06:00 | disposition home or self-care (01) ==
LOC: OPS 11:00
PROVIDERS: PCP Family Medicine; Visit Provider Urology
DX: N12 Tubulo-interstitial nephritis, not specified as acute or chronic (principal)
CPT/HCPCS: 96365; J0696

== ENCOUNTER 2021-02-19 06:00 | Outpatient (CLI) | payer OTHER, SELFPAY | END 2021-02-19 06:01 | disposition home or self-care (01) | LOC: LAB 08-19 12:16 | PROVIDERS: PCP Family Medicine; Visit Provider Urology | DX: N12 Tubulo-interstitial nephritis, not specified as acute or chronic (principal) | CPT/HCPCS: 81003; 87086 ==

== ENCOUNTER 2021-02-19 09:16 | Outpatient (CLI) | payer OTHER, SELFPAY ==
--- NOTE | 2021-02-19 09:27 | XRR_ITS ---
PROCEDURE INFORMATION: Exam: XR Abdomen Exam date and time: 02/19/2021 9:44 AM Age: 45 years old Clinical indication: Condition or disease; Kidney or ureter condition; Calculus (stone) in kidney; Prior surgery; Surgery type: Hysterectomy; Additional info: Renal stone TECHNIQUE: Imaging protocol: XR of the abdomen. Views: Frontal supine view of the abdomen. 1 View. COMPARISON: AR XR KUB [id number] 01/24/2021 2:26 PM FINDINGS: Gastrointestinal tract: Normal. No bowel dilation. Organs: Surgical clips are present in the right upper quadrant consistent with cholecystectomy. 8 2.5 mm calcification projects on the right kidney and unchanged. No other renal calcifications are seen. Phleboliths are present in the lower pelvis. Bones/joints: Unremarkable. XR/XR KUB [id number] IMPRESSION: Stable tiny right renal calcification. No acute abnormalities are seen in the abdomen.
== END 2021-02-19 09:17 | disposition home or self-care (01) ==
LOC: RAD 09:20
PROVIDERS: PCP Family Medicine; Visit Provider Urology
DX: N20.0 Calculus of kidney (principal)
CPT/HCPCS: 74018

== ENCOUNTER → 2021-02-26 13:13 | Outpatient (BNVA) | payer OTHER, SELFPAY | PROVIDERS: PCP Family Medicine; Visit Provider Nurse Practitioner Family | DX: N39.0 Urinary tract infection, site not specified (principal); N12 Tubulo-interstitial nephritis, not specified as acute or chronic; Q61.5 Medullary cystic kidney | CPT/HCPCS: 81003 ==

== ENCOUNTER → 2021-03-20 16:20 | Outpatient (BNVA) | payer OTHER, SELFPAY | PROVIDERS: PCP Family Medicine; Visit Provider Urology | DX: N39.0 Urinary tract infection, site not specified (principal); N12 Tubulo-interstitial nephritis, not specified as acute or chronic | CPT/HCPCS: 81003 ==

== ENCOUNTER → 2021-06-22 09:24 | Outpatient (BNVA) | payer OTHER, SELFPAY | PROVIDERS: PCP Family Medicine; Visit Provider Nurse Practitioner Family | DX: N39.0 Urinary tract infection, site not specified (principal) | CPT/HCPCS: 81003; 87086 ==

== ENCOUNTER → 2021-07-04 14:12 | Outpatient (BNVA) | payer OTHER, SELFPAY | PROVIDERS: PCP Family Medicine; Visit Provider Urology | DX: N12 Tubulo-interstitial nephritis, not specified as acute or chronic (principal); R10.9 Unspecified abdominal pain; N39.0 Urinary tract infection, site not specified; Q61.5 Medullary cystic kidney; N20.0 Calculus of kidney | CPT/HCPCS: 81003 ==

== ENCOUNTER → 2021-08-10 12:57 | Outpatient (BNVA) | payer OTHER, SELFPAY | PROVIDERS: PCP Family Medicine; Visit Provider Urology | DX: N39.0 Urinary tract infection, site not specified (principal); N12 Tubulo-interstitial nephritis, not specified as acute or chronic | CPT/HCPCS: 81003; 87086 ==

== ENCOUNTER 2021-12-05 15:24 | Outpatient (CLI) | payer OTHER, SELFPAY ==
--- NOTE | 2021-12-05 15:41 | XR_ITS ---
WS: [id number] KUB, AP view, 12/05/2021 Clinical Data: FLANK PAIN Comparison: KUB, 02/19/2021. Findings: No abnormal intraabdominal masses are seen. There is a vague calcification overlying the upper pole r ight kidney. There is no dilatated small bowel or evidence of obstruction. Fecal material and gas obscure detail over both kidneys. There are clips in the right upper quadrant from a cholecystectomy. XR/XR KUB [id number] Impression: Possible right renal calcification.
== END 2021-12-05 15:25 | disposition home or self-care (01) ==
LOC: RAD 15:30
PROVIDERS: PCP Family Medicine; Visit Provider Urology
DX: R10.9 Unspecified abdominal pain (principal); N39.0 Urinary tract infection, site not specified
CPT/HCPCS: 74018; 81003; 87086

== ENCOUNTER → 2021-12-07 07:59 | Outpatient (BNVA) | payer OTHER, SELFPAY | PROVIDERS: PCP Family Medicine; Visit Provider Nurse Practitioner Family | DX: N12 Tubulo-interstitial nephritis, not specified as acute or chronic (principal); N39.0 Urinary tract infection, site not specified; Q61.5 Medullary cystic kidney; R10.9 Unspecified abdominal pain | CPT/HCPCS: 81003 ==

== ENCOUNTER → 2021-12-10 07:59 | Outpatient (BNVA) | payer OTHER, SELFPAY | PROVIDERS: PCP Family Medicine; Visit Provider Nurse Practitioner Family | DX: N39.0 Urinary tract infection, site not specified (principal); B37.3 Candidiasis of vulva and vagina; N12 Tubulo-interstitial nephritis, not specified as acute or chronic; N20.0 Calculus of kidney; Q61.5 Medullary cystic kidney | CPT/HCPCS: 81003 ==

== ENCOUNTER → 2021-12-13 08:24 | Outpatient (BNVA) | payer OTHER, SELFPAY | PROVIDERS: PCP Family Medicine; Visit Provider Urology | DX: N39.0 Urinary tract infection, site not specified (principal); N12 Tubulo-interstitial nephritis, not specified as acute or chronic; N20.0 Calculus of kidney | CPT/HCPCS: 81003 ==

== ENCOUNTER → 2021-12-17 08:27 | Outpatient (BNVA) | payer OTHER, SELFPAY | PROVIDERS: PCP Family Medicine; Visit Provider Nurse Practitioner Family | DX: N39.0 Urinary tract infection, site not specified (principal) | CPT/HCPCS: 81003 ==

== ENCOUNTER → 2022-03-20 13:21 | Outpatient (BNVA) | payer OTHER, SELFPAY | PROVIDERS: PCP Family Medicine; Visit Provider Nurse Practitioner Family | DX: N39.0 Urinary tract infection, site not specified (principal); R10.9 Unspecified abdominal pain | CPT/HCPCS: 74018; 81003; 87086 ==

== ENCOUNTER → 2022-05-01 07:56 | Outpatient (BNVA) | payer OTHER, SELFPAY | PROVIDERS: PCP Family Medicine; Visit Provider Clinical Nurse Specialist Adult Health | DX: R19.7 Diarrhea, unspecified (principal); N20.0 Calculus of kidney; N39.0 Urinary tract infection, site not specified; Q61.5 Medullary cystic kidney; N12 Tubulo-interstitial nephritis, not specified as acute or chronic; R10.9 Unspecified abdominal pain; M54.9 Dorsalgia, unspecified | CPT/HCPCS: 80053; 83690; 83735; 85025; 85651; 86140; 87177; 87209 ==

== ENCOUNTER → 2022-05-21 10:40 | Outpatient (BNVA) | payer OTHER, SELFPAY | PROVIDERS: PCP Family Medicine; Visit Provider Clinical Nurse Specialist Adult Health | DX: R10.32 Left lower quadrant pain (principal); N39.0 Urinary tract infection, site not specified; N20.0 Calculus of kidney; Q61.5 Medullary cystic kidney | CPT/HCPCS: 85025 ==

== ENCOUNTER 2022-05-22 06:48 | Emergency (ER) | payer OTHER, SELFPAY ==
[2022-05-22 06:54] VITALS: BP 127/88; PULSE 105; RESP 18; TEMP 36.7; O2SAT 96; BMI 33.5
--- NOTE | 2022-05-22 06:56 | XR_ITS ---
WS: [id number] KUB, AP portable supine, 05/22/2022 Clinical Data: flank pain, hx nephrolithiasis Comparison: KUB, 03/20/2022. Findings: No abnormal intraabdominal masses or calcifications are seen. There is no dilatated small bowel or ev idence of obstruction. There is a moderate amount of fecal material throughout the colon. There are clips in the right upper quadrant from a cholecystectomy. XR/XR KUB portable [id number] Impression: Negative KUB.
--- NOTE | 2022-05-22 07:19 | ED_ITS ---
HPI - Abdominal Pain General: Chief Complaint: Abdominal Pain Stated Complaint: Left side pain Time Seen by Provider: 05/22/22 06:55 Source: patient Mode of arrival: ambulatory Limitations: no limitations History of Present Illness: 46-year-old female presents emergency room with complaint of right flank pain radiating to the left lower quadrant. Started 6 days ago, she had some vomiting with it as well. It progressively worsened she was seen yesterday and worsened overnight again. She was seen by her primary animal care technician yesterday the presumed diagnosis was nephrolithiasis because she has had renal stones in the past and she was complaining of pain that was similar to what she had previously with her stones. Did not notice any hematuria. Patient previously has had a hysterectomy. Patient voiced concerns about a potential ovarian cyst as well. She denies any hematochezia or melena denies any diarrhea. She does not have any really significant dysuria urgency or frequency no hematuria. No fever sweats or chills no cough or shortness of breath. Patient has not noticed anything that improves his symptoms but he has noticed when she bears down to urinate or defecate the discomfort seems to get a little bit better. MD elicited complaint: abdominal pain and flank pain Pertinent past history: kidney stones Onset (ago): day(s) (6) Pain Consistency: intermittent Location: R flank Severity: moderate Quality: cramping Radiation: LLQ Migration to: LLQ Exacerbating factors: other (Urinating) Relieving factors: nothing Associated Symptoms: Reports GI cramping and nausea; Denies bloating, change in bowel habits, change in stool character, chills, co ffee ground emesis, constipation, diarrhea, dyspepsia, dysuria, excessive flatus, fever(s), heartburn, hematochezia, hematuria, hematemesis, fecal incontinence, loose stools, melena, poor appetite, syncope and vomiting Review of Systems Const: Denies: fever(s), chills, fatigue or malaise ENMT: Denies: throat pain, ear or mastoid pain, nasal discharge or nasal congestion Card: Denies: chest pain, palpitations, irregular heart rhythm or syncope Resp: Denies: dyspnea, productive cough or non-productive cough GI: Reports: abdominal pain, nausea and GI cramping; Denies: vomiting, hematemesis, coffee ground emesis, heartburn, diarrhea, constipation, bloating, excessive flatus, fecal incontinence, change in bowel habits, change in stool character, hematochezia or melena : Reports: flank pain; Denies: difficulty voiding, dysuria, urinary frequency, urinary urgency or h ematuria Skin/Breast: Denies: rash or pruritus PFSH ED PFSH: Medical History Medullary sponge kidney Pyelonephritis Recurrent UTI Renal calculus S/P extracorporeal shock wave therapy Surgical History H/O knee surgery H/O: hysterectomy History of tubal ligation S/P cholecystectomy S/P tonsillectomy Family History Father , 80 Cancer liver Diabetes Mother No problems noted. Social History Smoking and tobacco status: current every day smoker Alcohol intake: current Alcohol intake frequency: holidays/special occasions only Marital status: Current occupational status: employed History of recent travel: No Physical Exam 2 Const: COMMON NORMALS: no acute distress GENERAL APPEARANCE: cooperative and comfortable ORIENTATION/CONSCIOUSNESS: Yes awake, Yes oriented to person, Yes oriented to place and Yes oriented to time HENMT: COMMON NORMALS: normocephalic, atraumatic and hearing grossly normal bilaterally HEAD & SCALP: normocephalic and atraumatic Resp: COMMON NORMALS: normal respiratory effort, No retractions, No use of accessory muscles and clear to auscultation bilaterally AUSCULTATION: clear to auscultation bilaterally Cardio: COMMON NORMALS: regular rate, regular rhythm and No murmurs present (Cardio) RATE: regular rate RHYTHM: regular rhythm GI: COMMON NORMALS: Soft to palpation and No hepatosplenomegaly present AUSCULTATION: Yes normoactive bowel sounds PALPATION: Yes Soft to palpation, No Tenderness to palpation present (GI), No Guarding due to palpation present (GI) and Yes No hepatosplenomegaly present : BLADDER/KIDNEY EXAM: Yes CVA tenderness Back/Pelvis: GENERAL BACK: Yes CVA tenderness CVA tenderness: right (Mild) Extremity: COMMON NORMALS: normal to inspection, capillary refill normal, no clubbing, cyanosis or edema, no calf tenderness and no pedal edema Neuro: SENSORIUM/ORIENTATION: Yes oriented to person, Yes oriented to place and Yes oriented to time Skin: COMMON NORMALS: no rashes or lesions noted GENERAL SKIN EXAM: no rashes or lesions noted Course Vital Signs: Vital signs: Vital Signs Temperature 98.1 F 05/22/22 06:54 Pulse Rate 67 05/22/22 07:39 Respiratory Rate 18 05/22/22 06:54 Blood Pressure 120/79 05/22/22 07:39 Pulse Oximetry 96 05/22/22 07:39 Oxygen Delivery Me thod 05/22/22 07:39 MDM - Abdominal Pain Medical Decision Making Urine and CT are unremarkable. Patient is feeling quite a bit better. No trisha dence hydronephrosis no nephrolithiasis. Some this may be from her medullary sponge kidney. There is no evidence of any ovarian cyst least on the CT. Discussed with the patient that if this persist she may need to have pelvic ultrasound at this point her pain was relieved with the ketorolac and p romethazine that was given she is resting comfortably. Discharge home with hydrocodone and promethazine to use as needed follow-up with primary care. Medical Records I reviewed the patient's medical records. Lab Data I reviewed the patient's lab results. : 05/22/22 07:40 05/22/22 07:40 Labs/Radiology: Radiology Impressions KUB X-Ray 05/22/22 06:56 Impression: Negative KUB. Abdomen/Pelvis CT 05/22/22 08:10 IMPRESSION: 1. Faint calcifications in the medullary pyramids, suggestive of medullary sponge kidney. Bilateral kidney upper pole and mid zone 1-2 mm intrarenal calculi. Similar findings were seen on the prior CT. No hydronephrosis of the kidneys. No ureterectasis or ureteral calculi seen. 2. Mild descending and sigmoid colonic diverticulosis, without CT evidence of diverticulitis. Laboratory Results WBC 7.6 10^3/uL (4.0-10.0) 05/22/22 07:40 RBC 4.83 10^6/uL (4.1-5.3) 05/22/22 07:40 Hgb 14.8 g/dL (11.5-15.3) 05/22/22 07:40 Hct 44.4 % (37.0-47.0) 05/22/22 07:40 MCV 91.9 fl (81-99) 05/22/22 07:40 MCH 30.6 pg (28.0-34.0) 05/22/22 07:40 MCHC 33.3 g/dL (30.0-36.0) 05/22/22 07:40 RDW 12.7 % (12.1-15.1) 05/22/22 07:40 Plt Count 329 10^3/cmm (130-400) 05/22/22 07:40 MPV 10.4 fL (7.4-10.4) 05/22/22 07:40 Neut % (Auto) 60.8 % 05/22/22 07:40 Lymph % (Auto) 27.6 % 05/22/22 07:40 Hardy % (Auto) 7.4 % 05/22/22 07:40 Eos % (Auto) 3.3 % 05/22/22 07:40 Baso % (Auto) 0.5 % 05/22/22 07:40 Neut # (Auto) 4.63 10^3/uL (1.8-7.7) 05/22/22 07:40 Lymph # (Auto) 2.1 10^3/uL (0.8-4.8) 05/22/22 07:40 Hardy # (Auto) 0.6 10^3/uL (0.2-0.9) 05/22/22 07:40 Eos # (Auto) 0.3 10^3/uL (0.0-0.8) 05/22/22 07:40 Baso # (Auto) 0.0 10^3/uL (0.0-0.1) 05/22/22 07:40 Nucleated RBC % (auto) 0 % 05/22/22 07:40 Nucleated RBCs # 0.0 /100WBC 05/22/22 07:40 Sodium 138 mmol/L (136-145) 05/22/22 07:40 Potassium 4.0 mmol/L (3.5-5.1) 05/22/22 07:40 Chloride 108 mmol/L (98-107) H 05/22/22 07:40 Carbon Dioxide 21 mmol/L (22-29) L 05/22/22 07:40 Anion Gap 13.0 (5-19) 05/22/22 07:40 BUN 8 mg/dL (6-20) 05/22/22 07:40 Creatinine 0.6 mg/dL (0.5-0.9) 05/22/22 07:40 GFR Calculation 108.6 mL/min (90-130) 05/22/22 07:40 Glucose 112 mg/dL (65-115) 05/22/22 07:40 Calculated Osmolality 285 mOsm/kg (285-295) 05/22/22 07:40 Calcium 8.6 mg/dL (8.5-10.5) 05/22/22 07:40 Urine Color Yellow (Yellow) 05/22/22 07:46 Urine Appearance Clear (CLEAR) 05/22/22 07:46 Urine pH 6 (5-7) 05/22/22 07:46 Ur Specific [place] 1.015 (1.005-1.030) 05/22/22 07:46 Urine Protein Neg (Negative) 05/22/22 07:46 Urine Glucose (UA) Norm (Normal) 05/22/22 07:46 Urine Ketones 1+ (Negative) H 05/22/22 07:46 Urine Blood Neg (Negative) 05/22/22 07:46 Urine Nitrate Negative (Negative) 05/22/22 07:46 Urine Bilirubin Neg (Negative) 05/22/22 07:46 Urine Urobilinogen Norm mg/dL (Negative) 05/22/22 07:46 Ur Leukocyte Esterase Negative (Negative) 05/22/22 07:46 Discharge Plan Discharge Patient Disposition: Home Clinical Impression: Pelvic pain, Medullary sponge kidney Condition: Stable Prescriptions: New hydrocodone-acetaminophen 5-325 mg tablet 1 tab PO Q6H PRN (Reason: pain) Qty: 10 0RF promethazine 25 mg tablet 25 mg PO Q6H PRN (Reason: nausea and vomiting) Qty: 10 0RF No Action ondansetron HCl 8 mg tablet 8 mg PO Q8H PRN (Reason: nausea and vomiting) Qty: 15 0RF promethazine 12.5 mg tablet 12.5 mg PO TID PRN (Reason: nausea and vomiting) Qty: 30 0RF duloxetine [Cymbalta] 20 mg capsule,delayed release(DR/EC) 20 mg PO DAILY Qty: 30 3RF tramadol 50 mg tablet 50 mg PO Q8H PRN (Reason: pain) Qty: 30 1RF Discharge Orders: Discharge ED (Routine); Ordered 05/22/22 Ordered By: Brennan Garzon Referrals: Lazaro So MD [Primary Care Provider] - Discharge Diet: Usual diet Discharge Activity: Increase activity as tolerated Activity Restrictions/Additional Instructions: If pain persist follow-up with primary care physician. Coding Level of Care Code ED Meeting Specialist for Trina Fry
[2022-05-22] MEDS: promethazine 25 mg/mL SDV 1 mL IM (07:33)
[2022-05-22] MEDS: ketorolac 30 mg/mL INJ IVP (07:34)
[2022-05-22 07:39] VITALS: BP 120/79; PULSE 67; O2SAT 96
[2022-05-22 07:47] LABS: Basophils % 0.5 %; Eosinophils # 0.3 10^3/uL (0.0-0.8); Eosinophils % 3.3 %; Hematocrit 44.4 % (37.0-47.0); Hemoglobin 14.8 g/dL (11.5-15.3); Lymphocytes # 2.1 10^3/uL (0.8-4.8); Lymphocytes % 27.6 %; Mean Corpuscular HGB Conc 33.3 g/dL (30.0-36.0); Mean Corpuscular Hemoglobin 30.6 pg (28.0-34.0); Mean Corpuscular Volume 91.9 fl (81-99); Mean Platelet Volume 10.4 fL (7.4-10.4); Monocytes # 0.6 10^3/uL (0.2-0.9); Monocytes % 7.4 %; Neutrophils # 4.63 10^3/uL (1.8-7.7); Neutrophils % 60.8 %; Nucleated Red Blood Cells % 0 %; Platelet Count 329 10^3/cmm (130-400); Red Blood Count 4.83 10^6/uL (4.1-5.3); Red Cell Distribution Width 12.7 % (12.1-15.1); White Blood Count 7.6 10^3/uL (4.0-10.0)
[2022-05-22 08:00] VITALS: BP 96/55; PULSE 57; O2SAT 97
[2022-05-22 08:02] LABS: Add Urine Microscopic? NO; Charge for UA Resulting for Rev
[2022-05-22 08:03] LABS: Blood Urea Nitrogen 8 mg/dL (6-20); Calcium 8.6 mg/dL (8.5-10.5); Carbon Dioxide 21 mmol/L (22-29); Chloride 108 mmol/L (98-107); Glomerular Filtration Rate 108.6 mL/min (90-130); Glucose 112 mg/dL (65-115); Osmolality Calculated 285 mOsm/kg (285-295); Sodium 138 mmol/L (136-145)
--- NOTE | 2022-05-22 08:10 | CTR_ITS ---
PROCEDURE INFORMATION: Exam: CT Abdomen And Pelvis Without Contrast Exam date and time: 05/22/2022 8:24 AM Age: 46 years old Clinical indication: Abdominal pain; Localized; Right; Prior surgery; Surgery type: Gb, tubal, hyst, lithro; Additional info: Flank pain TECHNIQUE: Imaging protocol: Computed tomography of the abdomen and pelvis without contrast. Radiation optimization: All CT scans at this facility use at least one of these dose optimization techniques: automated exposure control; mA and/or kV adjustment per patient size (includes targeted exams where dose is matched to clinical indication); or iterative reconstruction. COMPARISON: CT abdomen pelvis wo con [id number] 05/16/2017 8:45 PM RADIATION DOSE METRICS: Total DLP (mGy-cm): 1238.14 FINDINGS: Lungs: The visualized portions of the lung bases are normal. Liver: Multiple scattered 2-4 mm low-attenuation lesions are seen (greater than 6). These may represent cysts or bile duct hamartomas. No further follow-up is necessary per ACR recommendations. Gallbladder and bile ducts: Status post prior cholecystectomy. No biliary ductal dilatation. Pancreas: Appears unremarkable on the non-contrast CT. No ductal dilation. Spleen: Appears unremarkable on the non-contrast CT. No splenomegaly. Adrenal glands: Normal. No mass. Kidneys and ureters: There are faint calcifications in the medullary pyramids, suggestive of medullary sponge kidney. Right kidney upper pole to mid zone 3 x 2 mm calculus is seen. Bilateral kidney mid zone 1-2 mm calculi are seen. Similar findings were seen on the prior CT. No hydronephrosis of the kidneys. No ureterectasis or ureteral calculi seen. Stomach and bowel: The noncontrast opacified stomach appears unremarkable. The noncontrast opacified loops of small bowel in the abdomen and pelvis appear unremarkable. The noncontrast opacified loops of colon in the abdomen and pelvis show mild descending and sigmoid colonic diverticula, without CT evidence of diverticulitis. The lack of orally administered contrast material limits bowel assessment. Appendix: No evidence of appendicitis. Intraperitoneal space: No free air. No significant fluid collection. Tiny umbilical hernia is seen, containing peritoneal fat. Vasculature: No abdominal aortic aneurysm. Lymph nodes: No enlarged lymph nodes. Urinary bladder: No bladder debris. No wall thickening. Reproductive: Status post prior hysterectomy. Bones/joints: No acute osseous abnormality seen. Soft tissues: Unremarkable. CT/CT kidney stone [id number] IMPRESSION: 1. Faint calcifications in the medullary pyramids, suggestive of medullary sponge kidney. Bilateral kidney upper pole and mid zone 1-2 mm intrarenal calculi. Similar findings were seen on the prior CT. No hydronephrosis of the kidneys. No ureterectasis or ureteral calculi seen. 2. Mild descending and sigmoid colonic diverticulosis, without CT evidence of diverticulitis.
[2022-05-22 08:11] LABS: Bilirubin Urine Neg (Negative); Blood Urine Neg (Negative); Glucose Urine UA Norm (Normal); Ketones Urine 1+ (Negative); Leukocyte Esterase Urine Negative (Negative); Nitrate Urine Negative (Negative); Protein Urine Neg (Negative); Specific Gravity, Urine 1.015 (1.005-1.030); Urine Appearance Clear (CLEAR); Urine Color Yellow (Yellow); Urobilinogen Urine Norm (Negative); pH Urine 6 (5-7)
[2022-05-22 09:00] VITALS: BP 118/77; PULSE 59; O2SAT 95
[2022-05-22 09:30] VITALS: BP 112/68; PULSE 62; O2SAT 95
[2022-05-22 10:30] VITALS: BP 112/68; PULSE 56; O2SAT 97
== END 2022-05-22 09:57 | disposition home or self-care (01) ==
PROVIDERS: Emergency Provider Family Medicine; PCP Family Medicine
DX: R10.2 Pelvic and perineal pain (principal); Q61.5 Medullary cystic kidney; F17.210 Nicotine dependence, cigarettes, uncomplicated
CPT/HCPCS: 36415; 74018; 74176; 80048; 81003; 85025; 96372; 96374; 99285; J1885; J2550

== ENCOUNTER → 2022-05-27 13:33 | Outpatient (BNVA) | payer OTHER, SELFPAY | PROVIDERS: PCP Family Medicine; Visit Provider Urology | DX: N39.0 Urinary tract infection, site not specified (principal); N20.0 Calculus of kidney; N12 Tubulo-interstitial nephritis, not specified as acute or chronic | CPT/HCPCS: 81003; 87086 ==

== ENCOUNTER → 2022-06-14 17:36 | Outpatient (BNVA) | payer OTHER, SELFPAY | PROVIDERS: PCP Family Medicine; Visit Provider Emergency Medicine | DX: Z20.822 Contact with and (suspected) exposure to COVID-19 (principal) | CPT/HCPCS: 87426 ==

== ENCOUNTER → 2022-07-16 13:42 | Outpatient (BNVA) | payer OTHER, SELFPAY | PROVIDERS: PCP Family Medicine; Visit Provider Obstetrics & Gynecology | DX: N83.201 Unspecified ovarian cyst, right side (principal); R10.32 Left lower quadrant pain; Z90.710 Acquired absence of both cervix and uterus | CPT/HCPCS: 76830 ==

== ENCOUNTER → 2022-11-13 08:21 | Outpatient (BNVA) | payer OTHER, SELFPAY | PROVIDERS: PCP Family Medicine; Visit Provider Clinical Nurse Specialist Adult Health | DX: R35.0 Frequency of micturition (principal) | CPT/HCPCS: 81000; 87086 ==

== ENCOUNTER → 2023-07-14 16:35 | Outpatient (BNVA) | payer OTHER, SELFPAY | PROVIDERS: PCP Family Medicine; Visit Provider Nurse Practitioner | DX: R39.9 Unspecified symptoms and signs involving the genitourinary system (principal); N39.0 Urinary tract infection, site not specified | CPT/HCPCS: 81000; 87086 ==

== ENCOUNTER → 2023-07-29 12:44 | Outpatient (BNVA) | payer OTHER, SELFPAY | PROVIDERS: PCP Family Medicine; Visit Provider Family Medicine | DX: N39.0 Urinary tract infection, site not specified (principal) | CPT/HCPCS: 81000 ==

== ENCOUNTER → 2024-01-14 10:10 | Outpatient (BNVA) | payer OTHER, SELFPAY | PROVIDERS: PCP Family Medicine; Visit Provider Clinical Nurse Specialist Adult Health | DX: N39.0 Urinary tract infection, site not specified (principal) | CPT/HCPCS: 81003 ==

== ENCOUNTER → 2024-01-16 16:40 | Outpatient (BNVA) | payer OTHER, SELFPAY | PROVIDERS: PCP Family Medicine; Visit Provider Registered Nurse Neonatal Intensive Care | DX: R30.0 Dysuria (principal); N39.0 Urinary tract infection, site not specified | CPT/HCPCS: 81000; 87086 ==

== ENCOUNTER 2025-04-04 06:39 | Emergency (ER) | payer OTHER, SELFPAY ==
--- OUTSIDE RECORDS SUMMARY | 2024-03-27 04:00 | XMS_ITS ---
Author Organization [facility] Address [address] [place] [address] Care Team Providers Care General Operations Agent Name Role Phone Win Donato Unavailable [phone] Migration, Provider Unavailable Unavailable REASON FOR VISIT EMR-Jeanmarie Encounters Encounter Location Date Provider Diagnosis Migrated_Facility 0 0 03/27/2024 Provider Migration Plan Of Treatment No Information Progress Notes * Stacy MALHOTRADOB: 7 (49 yo F)Acc No.[id number]:03/27/2024 Patient: Mikayla NGUYENecca :1975 A ge:48 Y S ex:Female Address:[address] [place] [phone] Subjective: * Chief Complaints: * E MR-Jeanmarie * Medical History: * Surgical History: * Hospitalization/Major Diagno stic Procedure: * Medications: Objective: * Vitals: * Physical Examination: Assessment: Plan: * Treatment: * Procedure Codes: * * Date:
--- OUTSIDE RECORDS SUMMARY | 2024-03-28 04:00 | XMS_ITS ---
Author Organization [facility] Address [address] [place] [address] Care Team Providers Care Felt Puller Name Role Phone Win Donato Unavailable [phone] Migration, Provider Unavailable Unavailable Allergies Allergen (clinical drug ingredient) Drug/Non Drug Allergy documented on EMR Reaction Allergy Type Onset Date Status morphine Morphine Sulfate Unknown Drug Allergy 11/09/2003 Active REASON FOR VISIT EMR-[facility] Medications Medication SIG (Take, Route, Frequency, Duration) Notes Start Date End Date Status Ciprofloxacin HCl 500 MG Oral 04/14/2018 Active Encounters Encounter Location Date Provider Diagnosis Migrated_Facility 0 0 03/28/2024 Provider Migration Plan Of Treatment No Information Progress Notes * Stacy MALHOTRADOB: 7 (49 yo F)Acc No.[id number]:03/28/2024 Patient: Stacy NGUYEN :1975 A ge:48 Y S ex:Female Address:[address] [place] [id number] Subjective: * Chief Complaints: * E MR-Jeanmarie * Medical History: * Surgical History: * Hospitalization/Major Diagno stic Procedure: * Family History: F ather: PRN - Father: :: [place],,known absent , :: Cancer,,known absent , :: Diabetes,,known absent . M other: PRN - Mother: :: Hypertension,,known absent . * Social History: M igrated Social History: M igrated Social History: History of tobacco use : Current every day smoker , Alcohol intake : , History of tobacco use : , Smoking Status : Current every day smoker , Smoking Status : Never smoked. * Medications: T akingCiprofloxacin HCl 500 MG Tablet Oral Taking Ciprofloxacin HCl 500 MG Tablet Oral * Allergies: M orphine Sulfate: Allergy - Onset Date 2003-11-09 Objective: * Vitals: * Physical Examination: Assessment: Plan: * Treatment: * Procedure Codes: * * Date:
[2025-04-04 06:40] VITALS: BP 155/98; PULSE 107; RESP 16; TEMP 36.5; O2SAT 93; BMI 34.3
--- OUTSIDE RECORDS SUMMARY | 2025-04-04 06:43 | XMS_ITS | Patient Health Record ---
Author Organization [facility] Address [address] [place] [address] Care Team Providers Care Commercial Construction Project Manager Name Role Phone Win Donato Unavailable [phone] Reason For Referral No Information Medications Medication SIG (Take, Route, Frequency, Duration) Notes Start Date End Date Status Zoloft 100 MG Take tab(s) by mouth qd in the a m Oral for 30 Zoloft 100mg Tablet Take tab(s) by mouth qd in the a m #30 (Thirty) tablet(s) 04/21/2006 Active Ciprofloxacin HCl 500 MG Oral 04/14/2018 Active Ultram 50 MG 1 tab(s) po q hs. Oral for 30 Ultram 50mg Tablet 1 tab(s) po q hs. 07/05/2005 Active Problems Problem Type SNOMED Code ICD Code Onset Dates Problem Status W/U Status Risk Notes Problem 609223734 Recurrent UTI (N39.0) Active confirmed Problem Stress (947293372) Stress (300.02) 006 Active confirmed [id number]- Problem Mixed anxiety and depressive disorder (423305948) Depression with anxiety (300.4) 006 Active confirmed [id number] 911- Problem Acute sinusitis (50799360) Acute sinusitis, unspecified (461.9) 004 Problem resolved confirmed [id number] 911- Problem Generalized anxiety disorder (13734097) Anxiety, generalized (300.02) 004 Problem resolved confirmed [id number] 911- Problem Depression (643592555) Depression (311) 004 Problem resolved confirmed [id number] 911- Problem Mild recurrent major depression (25219205) Major depression, recurrent episode, mild (296.31) Problem resolved confirmed [id number] 911- Problem Mixed urinary incontinence (205073424) Mixed urinary incontinence (788.33) Problem resolved confirmed [id number] 911- Problem Moderate recurrent major depression (95997173) Major depression, recurrent episode, moderate (296.32) Problem resolved confirmed [id number] 911- Problem Major depression, single episode (27946091) Major depression, single episode, unspecified (296.20) 005 Problem resolved confirmed [id number] 911- Problem Dysmenorrhea (634581949) Menstrual difficulty (625.3) Problem resolved confirmed [id number] 911- Problem Open wound of hand except fingers without complication (94085264) Open wound to hand (882.0) Problem resolved confirmed [id number] 911- Problem Acne (27853694) Acne (706.1) Problem resolved confirmed [id number] 911- Problem Acute exacerbation of chronic obstructive airways disease (218116678) Acute exacerbation of chronic obstructive pulmonary disease (COPD) (491.21) Problem resolved confirmed [id number] 911- Problem Generalized abdominal pain (994098146) Generalized abdominal pain (789.07) 006 Problem resolved confirmed [id number] 911- Problem History of fibromyalgia (V13.5) Problem resolved confirmed [id number] 911- Problem Acute sinusitis (disorder) (78538957) Acute sinusitis, other (461.8) 004 Problem resolved confirmed [id number] 911- Problem Sore throat (102804853) Sore throat (784.1) 006 Problem resolved confirmed [id number] 911- Problem Urinary tract infection (78519406) UTI (595.0) Problem resolved confirmed [id number] 911- Problem Acute conjunctivitis (89624476) Acute conjunctivitis, unspecified (372.00) 005 Problem resolved confirmed [id number] 911- Problem Acute upper respiratory infection (59276829) Acute upper respiratory infection (465.8) 005 Problem resolved confirmed [id number] 911- Problem Anxiety depression (224383903) Anxiety with depression (300.4) 005 Problem resolved confirmed [id number] 911- Problem Breast pain (41709188) Breast pain (611.71) 005 Problem resolved confirmed [id number] 911- Problem Anxiety (03947841) Anxiety (300.02) 11/27 006 Problem resolved confirmed [id number] 911- Problem Chronic serous otitis media (98005593) Chronic serous otitis media (381.10) 004 Problem resolved confirmed [id number] 911- Problem Depression (671808220) Depression (296.20) 004 Problem resolved confirmed [id number] 911- Problem Knee pain (1598156469) Knee pain (719.46) 005 Problem resolved confirmed [id number] 911- Problem Menstrual disorder (253053136) DUB (626.8) 004 Problem resolved confirmed [id number] 911- Problem Temporomandibular joint disorder (60081661) TMJ pain-dysfunction syndrome (524.60) 004 Problem resolved confirmed [id number] 911- Problem Earache (92481926) Earache (388.70) 01/17 004 Problem resolved confirmed [id number] 911- Problem Muscle pain (11825100) Muscle aches (729.1) 005 Problem resolved confirmed [id number] 911- Problem Perimenopausal disorder (504152404) Perimenopausal disorder (627.9) 006 Problem resolved confirmed [id number] 911- Plan Of Treatment No Information Medical (General) History Surgical History Surgery Date(Month/Year) CholecystectomyTonsillectomy + Adenoidectomy; 1994Tubal Ligation acl reconstruction;wisdom teeth removal;
--- NOTE | 2025-04-04 06:57 | ED_ITS ---
HPI - Abdominal Pain 2 General: Chief Complaint: Abdominal Pain Stated Complaint: low left abd pain Time Seen by Provider: 04/04/25 06:39 History of Present Illness: 49-year-old male presents emergency room with left lower quadrant abdominal pain without is been going off and on for 3 years. . Patient has chronic pain she has a history of medullary sponge kidney. Symptoms began yesterday morning have been off and on since then. Patient states she does get some relief with ibuprofen. She has had some vomiting denies hematochezia melena hematemesis or coffee-ground emesis. No particular dysuria urgency or frequency. She has not any bulge in the groin region. Said the pain radiates into her back on the right side and down into the groin and upper thigh no recent back injury. She has had kidney stones in the past states this does not feel like a kidney stone. Associated Symptoms: Denies chills, dysuria and fever(s) Related Data Previous Rx's ?Medication ?Instructions ?Recorded albuterol sulfate 90 mcg/actuation 2 puff inhalation Q 6H PRN 01/27/25 aerosol inhaler (Ventolin HFA) shortness of breath or wheezing #8.5 grams hydrocodone 5 mg-acetaminophen 325 1 tab PO Q6H PRN pa in #5 tabs 04/04/25 mg tablet promethazine 25 mg tablet 25 mg PO Q6H PRN nausea and 04/04/25 vomiting #10 tabs Allergies Allergy/AdvReac Type Severity Reaction Status Date / Time gluten Allergy upset Verified 06/18/24 10:22 stomach morphine Allergy N/V Verified 06/18/24 10:22 Review of Systems 2 Const: Denies: fever(s) or chills Card: Denies: chest pain Resp: Denies: dyspnea GI: Denies: abdominal pain : Denies: dysuria, urinary frequency or urinary urgency Musc: Reports: extremity pain; Denies: neck pain or back pain Skin/Breast: Denies: rash PFSH ED 2 PFSH: Medical History No pertinent past medical history Neg hx: HTN, DM, Thyroid, DVT/PE PCP: LAZARO HAWKINS Pyelonephritis Medullary sponge kidney Renal calculus S/P extracorporeal shock wave therapy Recurrent UTI Surgical History Hx of lithotripsy History of bladder repair surgery DONE AT TIME OF HYSTERCTOPY 20 YEARS AGO History of tubal ligation S/P tonsillectomy S/P cholecystectomy H/O knee surgery H/O: hysterectomy Family History Father , 80 Diabetes Heart disease Hypertension Mother Breast cancer DX AGE 80 Sister Breast cancer DX AGE 63 Grandmother Diabetes PATERNAL Heart disease PATERNAL Family/Other Ovarian cancer PATERNAL AUNT DX.AGE 50 Denies family history of Colon cancer Hypercholesteremia Uterine cancer Thyroid disease Stroke Social History Smoking and tobacco/nicotine status: never used tobacco/nicotine Substance/Drug Use: current Substance/Drug use frequency: Special occassions/opportunity only Physical Exam 2 Const: COMMON NORMALS: no acute distress GENERAL APPEARANCE: cooperative and comfortable ORIENTATION/CONSCIOUSNESS: Yes awake, Yes oriented to person, Yes oriented to place and Yes oriented to time HENMT: COMMON NORMALS: normocephalic, atraumatic and hearing grossly normal bilaterally HEAD & SCALP: normocephalic and atraumatic Resp: COMMON NORMALS: normal respiratory effort, No retractions, No use of accessory muscles and clear to auscultation bilaterally AUSCULTATION: clear to auscultation bilaterally Cardio: COMMON NORMALS: regular rate, regular rhythm and No murmurs present (Cardio) RATE: regular rate RHYTHM: regular rhythm GI: COMMON NORMALS: Soft to palpation and No hepatosplenomegaly present A USCULTATION: Yes normoactive bowel sounds PALPATION: Yes Soft to palpation, No Tenderness to palpation present (GI), No Guarding due to palpation present (GI) and Yes No hepatosplenomegaly present Extremity: COMMON NORMALS: normal to inspection, capillary refill normal, no clubbing, cyanosis or edema, no calf tenderness and no pedal edema Neuro: SENSORIUM/ORIENTATION: Yes oriented to person, Yes oriented to place and Yes oriented to time Skin: COMMON NORMALS: no rashes or lesions noted GENERAL SKIN EXAM: no rashes or lesions noted Course 2 Vital Signs: Vital signs: Vital Signs Temperature 97.7 F 04/04/25 06:40 Pulse Rate 83 04/04/25 09:54 Respiratory Rate 16 04/04/25 06:40 Blood Pressure 131/88 04/04/25 09:54 Pulse Oximetry 93 04/04/25 09:54 Oxygen Delivery Me thod Room Air 04/04/25 08:00 MDM - Abdominal Pain Medical Decision Making No acute findings on exam laboratory or imaging some of this may be due to her medullary sponge kidney. Discharged home with 5 tablets of hydrocodone as needed promethazine. Her symptoms have resolved at this point follow-up with her primary care if persist. Medical Records I reviewed the patient's medical records. Lab Data I reviewed the patient's lab results. 04/04/25 06:54 04/04/25 06:54 Labs/Radiology: Radiology Impressions Abdomen/Pelvis CT 04/04/25 07:58 IMPRESSION: 1. Bilateral nephrolithiasis. 2. Diverticulosis. 3. Fatty infiltration of the liver. Laboratory Results WBC 8.23 10^3/uL (3.29-11.43) 04/04/25 06:54 RBC 5.29 10^6/uL (3.85-5.65) 04/04/25 06:54 Hgb 16.30 g/dL (11.27-16.99) 04/04/25 06:54 Hct 48.3 % (36-47) H 04/04/25 06:54 MCV 91.3 fl (85-98) 04/04/25 06:54 MCH 30.8 pg (27-33) 04/04/25 06:54 MCHC 33.7 g/dL (30-55) 04/04/25 06:54 RDW 13.0 % (12.1-15.1) 04/04/25 06:54 Plt Count 399 10^3/cmm (157-399) 04/04/25 06:54 MPV 9.9 fL (7.4-10.4) 04/04/25 06:54 Neut % (Auto) 56.8 % 04/04/25 06:54 Lymph % (Auto) 31.8 % 04/04/25 06:54 Atkinson % (Auto) 7.2 % 04/04/25 06:54 Eos % (Auto) 3.0 % 04/04/25 06:54 Baso % (Auto) 0.7 % 04/04/25 06:54 Neut # (Auto) 4.67 10^3/uL (1.8-7.7) 04/04/25 06:54 Lymph # (Auto) 2.6 10^3/uL (0.8-4.8) 04/04/25 06:54 Atkinson # (Auto) 0.6 10^3/uL (0.2-0.9) 04/04/25 06:54 Eos # (Auto) 0.3 10^3/uL (0.0-0.8) 04/04/25 06:54 Baso # (Auto) 0.1 10^3/uL (0.0-0.1) 04/04/25 06:54 Nucleated RBC % (auto) 0 % 04/04/25 06:54 Nucleated RBCs # 0.0 /100WBC 04/04/25 06:54 Sodium 139 mmol/L (136-145) 04/04/25 06:54 Potassium 3.9 mmol/L (3.5-5.1) 04/04/25 06:54 Chloride 106 mmol/L (98-107) 04/04/25 06:54 Carbon Dioxide 19 mmol/L (22-29) L 04/04/25 06:54 Anion Gap 17.9 (5-19) 04/04/25 06:54 BUN 8 mg/dL (6-20) 04/04/25 06:54 Creatinine 0.6 mg/dL (0.5-0.9) 04/04/25 06:54 GFR Calculation 107.2 mL/min (90-130) 04/04/25 06:54 Glucose 121 mg/dL (65-115) H 04/04/25 06:54 Calculated Osmolality 288 mOsm/kg (285-295) 04/04/25 06:54 Calcium 9.3 mg/dL (8.5-10.5) 04/04/25 06:54 Total Bilirubin 0.3 mg/dL (0.15-1.2) 04/04/25 06:54 AST 18 U/L (0-32) 04/04/25 06:54 ALT 27 U/L (0-33) 04/04/25 06:54 Alkaline Phosphatase 93 U/L (35-105) 04/04/25 06:54 Total Protein 7.1 g/dL (6.6-8.7) 04/04/25 06:54 Albumin 4.3 g/dL (3.5-5.2) 04/04/25 06:54 Globulin 2.8 g/dL (1.3-4.6) 04/04/25 06:54 Lipase 53 U/L (13-60) 04/04/25 06:54 Urine Color Yellow (Yellow) 04/04/25 07:16 Urine Appearance Clear (CLEAR) 04/04/25 07:16 Urine pH 5.5 (5-7) 04/04/25 07:16 Ur Specific [place] 1.013 (1.005-1.030) 04/04/25 07:16 Urine Protein Negative (Negative) 04/04/25 07:16 Urine Glucose (UA) Negative (Normal) 04/04/25 07:16 Urine Ketones Negative (Negative) 04/04/25 07:16 Urine Blood Negative (Negative) 04/04/25 07:16 Urine Nitrate Negative (Negative) 04/04/25 07:16 Urine Bilirubin Negative (Negative) 04/04/25 07:16 Urine Urobilinogen 0.2 mg/dL (Negative) 04/04/25 07:16 Ur Leukocyte Esterase Negative (Negative) 04/04/25 07:16 Urine RBC 3-5 /hpf (0-2) 04/04/25 07:16 Urine WBC 0-5 /hpf (0-5) 04/04/25 07:16 Ur Squamous Epith Cells 0-5 /hpf (0-5) 04/04/25 07:16 Amorphous Sediment Not Reportable 04/04/25 07:16 Urine Bacteria None seen /hpf (NONE) 04/04/25 07:16 Hyaline Casts 0.81 /lpf 04/04/25 07:16 All radiology interpretation(s) finalized by discharge Discharge Plan Discharge Patient Disposition: Home Clinical Impression: Medullary sponge kidney, Abdominal pain Condition: Stable Prescriptions: New hydrocodone-acetaminophen 5-325 mg tablet 1 tab PO Q6H PRN (Reason: pain) Qty: 5 0RF promethazine 25 mg tablet 25 mg PO Q6H PRN (Reason: nausea and vomiting) Qty: 10 0RF No Action albuterol sulfate [Ventolin HFA] 90 mcg/actuation HFA aerosol inhaler 2 puff inhalation Q6H PRN (Reason: shortness of breath or wheezing) Qty: 8.5 11RF Discharge Orders: Discharge ED (Routine); Ordered 04/04/25 Ordered By: Brennan Garzon Referrals: Lazaro Hawkins MD [Primary Care Provider, Family Practice] Discharge Diet: Usual diet Discharge Activity: Increase activity as tolerated Patient Instructions: Abdominal Pain (ED), Opioid Safety, Pain Management, Patient Portal & Lyudmila Instructions Activity Restrictions/Additional Instructions: [facility]. It is very important that you follow up as instructed or that you return to the Emergency Department should you have concerns or if your condition changes or worsens in any way. Follow-up with your primary care doctor as needed. Print Language: Croatian Coding Level of Care Code ED Night Clerk Auditor for Trina Fry
[2025-04-04 07:08] LABS: Basophils # 0.1 10^3/uL (0.0-0.1); Basophils % 0.7 %; Eosinophils # 0.3 10^3/uL (0.0-0.8); Hematocrit 48.3 % (36-47); Lymphocytes # 2.6 10^3/uL (0.8-4.8); Lymphocytes % 31.8 %; Mean Corpuscular HGB Conc 33.7 g/dL (30-55); Mean Corpuscular Hemoglobin 30.8 pg (27-33); Mean Corpuscular Volume 91.3 fl (85-98); Mean Platelet Volume 9.9 fL (7.4-10.4); Monocytes # 0.6 10^3/uL (0.2-0.9); Monocytes % 7.2 %; Neutrophils # 4.67 10^3/uL (1.8-7.7); Neutrophils % 56.8 %; Nucleated Red Blood Cells % 0 %; Platelet Count 399 10^3/cmm (157-399); Red Blood Count 5.29 10^6/uL (3.85-5.65); White Blood Count 8.23 10^3/uL (3.29-11.43)
[2025-04-04 07:16] LABS: Alanine Aminotransferase 27 U/L (0-33); Albumin Level 4.3 g/dL (3.5-5.2); Alkaline Phosphatase 93 U/L (35-105); Anion Gap 17.9 (5-19); Aspartate Amino Transferase 18 U/L (0-32); Blood Urea Nitrogen 8 mg/dL (6-20); Calcium 9.3 mg/dL (8.5-10.5); Carbon Dioxide 19 mmol/L (22-29); Chloride 106 mmol/L (98-107); Creatinine Clr Calc Pharmacy 126.4566; Globulin 2.8 g/dL (1.3-4.6); Glomerular Filtration Rate 107.2 mL/min (90-130); Glucose 121 mg/dL (65-115); Lipase 53 U/L (13-60); Osmolality Calculated 288 mOsm/kg (285-295); Potassium 3.9 mmol/L (3.5-5.1); Sodium 139 mmol/L (136-145); Total Bilirubin 0.3 mg/dL (0.15-1.2); Total Protein 7.1 g/dL (6.6-8.7)
[2025-04-04 07:48] LABS: Bilirubin Urine Negative (Negative); Blood Urine Negative (Negative); Glucose Urine UA Negative (Normal); Ketones Urine Negative (Negative); Leukocyte Esterase Urine Negative (Negative); Nitrate Urine Negative (Negative); Protein Urine Negative (Negative); Specific Gravity, Urine 1.013 (1.005-1.030); Urine Appearance Clear (CLEAR); Urine Color Yellow (Yellow); Urobilinogen Urine 0.2 mg/dL (Negative); pH Urine 5.5 (5-7)
[2025-04-04 07:50] LABS: Add Urine Microscopic? YES; Bacteria Urine None Seen /hpf; Hyaline Casts Urine 0.81 /lpf; Squamous Epithelial Cell Urine 0-5 /hpf (0-5); WBC Urine 0-5 /hpf (0-5)
--- NOTE | 2025-04-04 07:58 | CTR_ITS ---
PROCEDURE INFORMATION: Exam: CT Abdomen And Pelvis Without Contrast Exam date and time: 04/04/2025 8:54 AM Age: 49 years old Clinical indication: Abdominal pain; Localized; Left lower quadrant (llq); Prior surgery; Surgery date: 6+ months; Surgery type: Gb, hyst; Additional info: Flank pain TECHNIQUE: Imaging protocol: Computed tomography of the abdomen and pelvis without contrast. Radiation optimization: All CT scans at this facility use at least one of these dose optimization techniques: automated exposure control; mA and/or kV adjustment per patient size (includes targeted exams where dose is matched to clinical indication); or iterative reconstruction. COMPARISON: CT kidney stone [id number] 05/22/2022 8:24 AM RADIATION DOSE METRICS: Total DLP (mGy-cm): 836.54 FINDINGS: Lungs: Lung bases are clear as visualized. Diaphragm: There may be a small hiatal hernia. Liver: There is diffuse fatty infiltration of the liver. The liver is otherwise normal. Gallbladder and biliary ducts: There are surgical clips within the gallbladder fossa. Pancreas: Normal. No ductal dilation. Spleen: Normal. No splenomegaly. Adrenal glands: Normal. No mass. Kidneys and ureters: There are bilateral nonobstructing renal calculi. No hydronephrosis is noted. No definite ureteral calculi are identified. Stomach and bowel: There are scattered colonic diverticula. No large bowel wall thickening is appreciated. No dilated loops of large or small bowel is appreciated. Appendix: No evidence of appendicitis. Intraperitoneal space: Unremarkable. No free air. No significant fluid collection. Vasculature: The aorta is normal in caliber. There is calcified plaque involving the aorta and its branch vessels. Lymph nodes: Unremarkable. No enlarged lymph nodes. Urinary bladder: Unremarkable as visualized. Reproductive: The uterus is not identified. Bones/joints: Unremarkable. No acute fracture. Soft tissues: There is a small fat filled periumbilical hernia. CT/CT kidney stone [id number] IMPRESSION: 1. Bilateral nephrolithiasis. 2. Diverticulosis. 3. Fatty infiltration of the liver.
[2025-04-04 08:00] VITALS: BP 125/91; PULSE 73; O2SAT 95
[2025-04-04] MEDS: ketorolac 30 mg/mL INJ IVP (08:37)
[2025-04-04] MEDS: ondansetron 2 mg/ML SDV 2 mL 4 MG IVP (08:37)
[2025-04-04 09:54] VITALS: BP 131/88; PULSE 83; O2SAT 93
== END 2025-04-04 09:55 | disposition home or self-care (01) ==
PROVIDERS: Emergency Provider Family Medicine; PCP Family Medicine
DX: Q61.5 Medullary cystic kidney (principal); R10.9 Unspecified abdominal pain
CPT/HCPCS: 36415; 74176; 80053; 81001; 83690; 85025; 96374; 96375; 99285; J1885; J2405

== ENCOUNTER → 2025-10-05 13:11 | Outpatient (BNVA) | payer SELFPAY | PROVIDERS: PCP Family Medicine; Visit Provider Nurse Practitioner | DX: R39.9 Unspecified symptoms and signs involving the genitourinary system (principal); N12 Tubulo-interstitial nephritis, not specified as acute or chronic | CPT/HCPCS: 81000 ==